=== PATIENT | female | born 1970 | race Caucasian/White ===

== ENCOUNTER 2020-05-11 09:27 | Emergency (ER) | payer MEDICAID, SELFPAY ==
[2020-05-11 09:35] VITALS: BP 133/113; PULSE 75; RESP 18; TEMP 36.7; O2SAT 100
--- NOTE | 2020-05-11 09:38 | ED.UPPEXIN ---
HPI - Extremity Injury (Upper) General Chief Complaint: Extremity Injury, Upper Stated Complaint: left hand injury Time Seen by Provider: 05/11/20 09:33 Source: patient History of Present Illness HPI narrative: Patient complaining of elbow pain after she was placed in handcuffs by the police and resisted, possibly dislocating her left elbow. Patient states she has had left elbow dislocation in the past Other injuries: none Severity scale (1-10): 10 Relieving factors: none Exacerbating factors: movement of extremity Associated symptoms: denies other symptoms Related Data Allergies Allergy/AdvReac Type Severity Reaction Status Date / Time ketorolac Allergy Mild Verified 02/05/19 14:29 naproxen Allergy Mild Verified 02/05/19 14:29 adhesive Allergy Unknown Verified 02/05/19 14:29 codeine Allergy Unknown Verified 02/05/19 14:29 dicyclomine Allergy Unknown Unknown Verified 02/05/19 14:29 meperidine Allergy Unknown Unknown Verified 02/05/19 14:29 Sulfa (Sulfonamide Allergy Unknown RASH Verified 02/05/19 14:29 Antibiotics) DICYCLOMINE HCL Allergy Severe SEIZURE Uncoded 02/05/19 14:29 MEPERIDINE HCL Allergy Unknown Uncoded 02/05/19 14:29 NALBUPHINE HCL Allergy Unknown Uncoded 02/05/19 14:29 Review of Systems Review of Systems: All systems reviewed & are unremarkable except as noted in HPI and below Constitutional: Constitutional: Reports as per HPI Cardiovascular: Cardiovascular: Reports no additional cardiovascular complaints, Denies chest pain and Denies radiating jaw, neck or arm pain Respiratory: Respiratory: Reports no additional respiratory complaints and Denies dyspnea Gastrointestinal: Gastrointestinal: Denies abdominal pain, Denies nausea and Denies vomiting Musculoskeletal: Musculoskeletal: Reports no additional musculoskeletal complaints and Denies back pain Neurologic: Denies numbness and Denies weakness Exam Const: General: cooperative, healthy appearing, comfortable, no acute distress, well developed, alert and awake; No confusion Orientation/consciousness: oriented to person, oriented to place, oriented to time, patient oriented x3 and No confusion Limitations: no limitations HENMT: Head: normal to inspection, normocephalic and atraumatic Ears: hearing grossly normal bilaterally, TM normal on the right and TM normal on the left General nose exam: Normal external nose present, Normal nares present and No nasal discharge present Face and sinus: normal facial exam Mouth: Yes Normal oral and palatal mucosa present, Yes lip normal, Yes tongue normal and Yes oropharynx normal Throat: posterior oropharynx normal, tonsils normal and uvula midline Eyes: General: appearance normal, both eyes and all related structures Pupils: Equal, round and reactive pupils present EOM: EOMs intact bilaterally Neck: Neck: normal visual inspection, full ROM, no lymphadenopathy and no meningeal signs Chest: Chest palpation & inspection: normal inspection of the chest Resp: Effort & Inspection: normal respiratory effort, able to speak in complete sentences, no respiratory distress and not tachypneic Auscultation: clear to auscultation bilaterally, no crackles, no rales, no rhonchi and no wheezes Cardio: Rate: regular rate Rhythm: regular rhythm GI: Inspection: normal to inspection GI Palp: No abdominal tenderness, Yes Soft to palpation, No Tenderness to palpation present (GI), No Guarding due to palpation present (GI), No Rigid due to palpation and No Rebound tenderness present Auscultation: normal bowel sounds : General: Yes no CVA tenderness Back/Spine/Pelvis: Back: no CVA tenderness Skin: General skin exam: normal color, no rashes or lesions noted, elasticity normal and turgor normal Neuro: General: oriented to person, oriented to place, oriented to time, patient oriented x3, tone normal, moves all extremities, Normal light touch and pain sensation, no meningeal signs, no focal motor deficits, CN's II-XI intact bilat
== END 2020-05-11 10:03 | disposition left against medical advice (07) ==
LOC: ANHED 09:58
PROVIDERS: Emergency Provider Emergency Medicine
DX: M25.522 Pain in left elbow (principal)
CPT/HCPCS: 99282

== ENCOUNTER 2020-09-01 18:04 | Emergency (ER) | payer BC, SELFPAY ==
[2020-09-01 18:03] VITALS: BP 128/96; PULSE 103; RESP 18; TEMP 36.6; O2SAT 96
--- NOTE | 2020-09-01 18:40 | ED.OVERDOSE ---
HPI - Overdose General Chief Complaint: Overdose Stated Complaint: OD Time Seen by Provider: 09/01/20 18:22 Source: patient Mode of arrival: ambulatory Limitations: no limitations History of Present Illness HPI Narrative: A 49-year-old female came into the emergency department via EMS after an alleged overdose. Patient does note that she has a history of snorting heroin. She states tonight she thinks her heroin may have contained fentanyl as well. She does state that she has been clean for the last few months and tonight was a relapse. Patient is very tearful. She is she is keeps stating she wants to go home. Related Data Allergies Allergy/AdvReac Type Severity Reaction Status Date / Time ketorolac Allergy Mild Rash Verified 09/01/20 18:10 naproxen Allergy Mild Unknown Verified 09/01/20 18:10 adhesive Allergy Unknown Rash Verified 09/01/20 18:10 codeine Allergy Unknown Unknown Verified 09/01/20 18:10 dicyclomine Allergy Unknown Unknown Verified 02/05/19 14:29 meperidine Allergy Unknown Unknown Verified 02/05/19 14:29 Sulfa (Sulfonamide Allergy Unknown RASH Verified 02/05/19 14:29 Antibiotics) DICYCLOMINE HCL Allergy Severe SEIZURE Uncoded 02/05/19 14:29 MEPERIDINE HCL Allergy Unknown Unknown Uncoded 09/01/20 18:10 NALBUPHINE HCL Allergy Unknown Unknown Uncoded 09/01/20 18:10 Review of Systems Review of Systems: Narrative: CONSTITUTIONAL: Denies fever, chills, or sweats. EYES: Denies visual changes, redness, or discharge. ENT: Denies rhinorrhea, congestion, sore throat, or otalgia. CARDIOVASCULAR: Denies chest pain, palpitations, or edema. RESPIRATORY: Denies cough or dyspnea. GASTROINTESTINAL: Denies abdominal pain, nausea, vomiting, or diarrhea. GENITOURINARY: Denies dysuria or hematuria. SKIN: Denies rash or itching. MUSCULOSKELETAL: Denies back pain, joint pain, or myalgia. NEUROLOGIC: Denies headache, numbness, dizziness, or weakness. PSYCHIATRIC: Denies anxiety or depression. [facility] Social History Social History Smoking status: Current some day smoker Alcohol intake: current Substance use: current Substance use type: heroin and opiates Exam Narrative: Exam Narrative: GENERAL: Well-appearing, well-nourished, and in no acute distress. HEAD: Normocephalic, atraumatic. EYES: PERRLA and EOMI. ENT: Nares clear, no rhinorrhea or epistaxis. Mucous membranes moist. Oropharynx without tonsillar hypertrophy exudate or other lesions. Bilateral TMs pearly bowen nonbulging NECK: Supple. No adenopathy or masses. No carotid bruits or JVD CHEST: Clear to auscultation. No respiratory distress. No wheezes rales or rhonchi HEART: Regular rate and rhythm. No murmur heard. Normal peripheral pulses. ABDOMEN: Soft, nontender, nondistended, normal active bowel sounds. EXTREMITIES: Normal range of motion. No edema. SKIN: Warm, dry, no rash. NEURO: No focal deficits. Alert and oriented x3. PSYCH: Normal mood and affect. Course Course Emergency Course: After initial evaluation the patient was very tearful and kept asking what happens if she would go to sleep. I have tried to explain to her numerous times that she may go to sleep if she is here in the emergency department on a monitor. I explained to her that if she goes home and falls asleep that she could . This was explained to the patient several times. She stated that she is trying to decide if she wants to stay or wants to leave. Reevaluation(s) Reevaluation #1: After initial evaluation the patient was very tearful and kept asking what happens if she would go to sleep. I have tried to explain to her numerous times that she may go to sleep if she is here in the emergency department on a monitor. I explained to her that if she goes home and falls asleep that she could . This was explained to the patient several times. She stated that she is trying to decide if she wants to stay or wants to leave. Time: 18:42 Reevaluat
--- NOTE | 2020-09-01 18:43 | PC.NURSE ---
Took off monitor and put clothing back on. States she wants to leave AMA but is afraid if she falls asleep she won't wake back up. Pt advised to stay to be evaluated. Boyfriend to room to speak with pt.
== END 2020-09-01 18:57 | disposition left against medical advice (07) ==
LOC: ANHED 18:48
PROVIDERS: Emergency Provider Emergency Medicine
DX: T40.1X1A Poisoning by heroin, accidental (unintentional), initial encounter (principal); F17.200 Nicotine dependence, unspecified, uncomplicated
CPT/HCPCS: 99281

== ENCOUNTER 2020-10-13 06:30 | Emergency (ER) | payer BC, SELFPAY ==
[2020-10-13] VITALS (11 sets, daily range): BP systolic 106–135; BP diastolic 79–103; PULSE 75–109; RESP 13–20; TEMP 36.6; O2SAT 98–100
--- NOTE | ~2020-10-13 | XR_ITS ---
XR chest 1V portable DATE: 10/13/2020 07:06 INDICATION: Overdose TECHNIQUE: Portable supine AP view on October 13, 2020 at 0708 hours COMPARISON: 02/02/2019 AP chest FINDINGS: Normal heart size. Calcified hilar and mediastinal nodes consistent with old granulomatous disease. No pulmonary infiltrate or consolidation, pleural effusion or pulmonary vascular congestion or pneumothorax. Diffuse osteopenia. Suture anchors of right humeral head. Right rotator cuff atrophy. Left glenohumer al area is excluded from the radiograph. IMPRESSION: No active cardiopulmonary disease Reviewed, dictated and finalized at location A. AZZO HELPER
--- NOTE | 2020-10-13 07:06 | PC.NURSE ---
Report received from ANTHONY Coates, to continue care. Pt asleep on stretcher. PCXR being done.
--- NOTE | 2020-10-13 07:06 | ED.OVERDOSE ---
HPI - Overdose General Chief Complaint: Overdose Stated Complaint: OD Time Seen by Provider: 10/13/20 07:04 History of Present Illness HPI Narrative: 49 yo female w/ h/o opioid abuse presents to the ED for an overdose. She was found unresponsive. She was given 6 mg IN narcan. On arrival to the ED she was awake and uncooperative. Maintaining O2 saturation without supplemental oxygen. Related Data Allergies Allergy/AdvReac Type Severity Reaction Status Date / Time ketorolac Allergy Mild Rash Verified 09/01/20 18:10 naproxen Allergy Mild Unknown Verified 09/01/20 18:10 adhesive Allergy Unknown Rash Verified 09/01/20 18:10 codeine Allergy Unknown Unknown Verified 09/01/20 18:10 Sulfa (Sulfonamide Allergy Unknown RASH Verified 02/05/19 14:29 Antibiotics) DICYCLOMINE HCL Allergy Severe SEIZURE Uncoded 02/05/19 14:29 MEPERIDINE HCL Allergy Unknown Unknown Uncoded 09/01/20 18:10 NALBUPHINE HCL Allergy Unknown Unknown Uncoded 09/01/20 18:10 Review of Systems Review of Systems: All systems reviewed & are unremarkable except as noted in HPI and below Constitutional: Constitutional: Denies fever(s) Cardiovascular: Cardiovascular: Denies chest pain Respiratory: Respiratory: Denies dyspnea Psychiatric: Psychiatric: Denies homicidal ideation and Denies suicidal ideation [facility] Social History Social History Smoking status: Current some day smoker Alcohol intake: current Substance use: current Substance use type: heroin and opiates Exam Const: General: no acute distress and alert Orientation/consciousness: patient oriented x3 HENMT: Head: normal to inspection Eyes: Pupils: Equal, round and reactive pupils present Neck: Neck: normal visual inspection Resp: Effort & Inspection: normal respiratory effort Auscultation: clear to auscultation bilaterally Cardio: Rate: regular rate Rhythm: regular rhythm GI: GI Palp: Yes Soft to palpation and No Tenderness to palpation present (GI) Neuro: General: patient oriented x3, moves all extremities, no focal motor deficits and CN's II-XI intact bilaterally Speech: normal speech Gait exam (Neuro): Normal gait present Extrem: General: normal to inspection Course Vital Signs Vital signs: Vital Signs Temperature 36.6 C 10/13/20 06:23 Pulse Rate 104 H 10/13/20 06:23 Respiratory Rate 18 10/13/20 06:23 Blood Pressure 125/88 10/13/20 06:23 Pulse Oximetry 98 10/13/20 06:23 Temperature 36.6 C 10/13/20 06:23 Pulse Rate 80 10/13/20 09:01 Respiratory Rate 13 10/13/20 09:01 Blood Pressure 135/97 H 10/13/20 09:01 Pulse Oximetry 100 10/13/20 09:01 MDM - Overdose MDM Narrative Medical decision making narrative: unintentional overdose. Breathing well. Discharge Plan Discharge Clinical Impression: Accidental fentanyl overdose Qualifiers: Encounter type: initial encounter Qualified Code(s): T40.411A - Poisoning by fentanyl or fentanyl analogs, accidental (unintentional), initial encounter Patient Disposition: Home, Self-Care Condition: Stable Instructions: Antibiotic Form, Opioid Use Disorder (ED) Follow-up/Referrals: Melina Pulliam DO [Physician] - PHYSICIAN,WEED CONTROLLER [Primary Care Provider] -
--- NOTE | 2020-10-13 07:49 | PC.NURSE ---
Pt resting on stretcher, arouses to noxious stimuli.
--- NOTE | 2020-10-13 09:31 | PC.NURSE ---
Pt arouses to name and gentle touch. Denies needs at present.
--- NOTE | 2020-10-13 10:11 | PC.NURSE ---
road tested pt. to bathroom. Walked to and from fine. 1011
== END 2020-10-13 10:31 | disposition home or self-care (01) ==
PROVIDERS: Emergency Provider Emergency Medicine
DX: T40.411A Poisoning by fentanyl or fentanyl analogs, accidental (unintentional), initial encounter (principal); F17.200 Nicotine dependence, unspecified, uncomplicated
CPT/HCPCS: 71045; 99283

== ENCOUNTER 2025-02-28 15:24 | Emergency (ER) | payer BC, SELFPAY ==
--- NOTE | ~2025-02-28 | XR_ITS ---
XR hip LT min 3V w AP pelvis Ordering provider: Killian Melton APRN History: . pain . Comparison: March 08, 2013 FINDINGS: BONES: No acute fracture. Superior dislocation is seen in the left hip with pseudoacetabulum . AVN is seen in the left femoral head. HIP JOINT SPACES: Normal. SACROILIAC JOINT SPACES/LUMBAR SPINE: The sacroiliac joint spaces are normal. Normal visualized lower lumbar spine. PUBIC SYMPHYSIS: Normal. SOFT TISSUES: Normal. IMPRESSION: Superior dislocation of the left femoral head. AVN in the left femoral head. Reviewed, dictated and finalized at location A.
--- NOTE | ~2025-02-28 | XR_ITS ---
3 VIEWS LUMBAR SPINE Ordering provider: Killian Melton APRN History: . pain . Comparison: February 17, 2015 FINDINGS: VERTEBRAL BODIES: No visible fracture or subluxation. Levoscoliosis. DISK SPACES: Narrowing of the disc L5-S1. SOFT TISSUES: Atherosclerotic changes of the aorta. IMPRESSION: No acute osseous abnormality lumbar spine. Degenerative disc disease at the level of L5-S1. Reviewed, dictated and finalized at location A.
[2025-02-28 15:39] VITALS: BP 141/96; PULSE 116; RESP 20; TEMP 36.9; O2SAT 98
--- NOTE | 2025-02-28 15:59 | ED_ITS ---
HPI - General Adult General Chief complaint: Extremity Problem,Nontraumatic Stated complaint: Left Leg Pain Source: patient Mode of arrival: wheelchair Limitations: no limitations History of Present Illness HPI narrative: Pt is a 54 y/o female presenting with c/o L. lower back pain that radiates into the L. hip and down the L. leg. Pain began a few months ago, became worse a few weeks ago. Tx initiated CABBAGE SALTER includes aleve, tylenol. NO paresthesias to extremities. No bowel/bladder incontinence. No urinary retention. States she is unable to ambulate due to pain. Has not been evaluated since pain began. No additional complaints. Related Data Allergies Allergy/AdvReac Type Severity Reaction Status Date / Time ketorolac Allergy Mild Rash Verified 02/28/25 15:44 naproxen Allergy Mild Unknown Verified 02/28/25 15:44 adhesive Allergy Unknown Rash Verified 02/28/25 15:44 codeine Allergy Unknown Unknown Verified 02/28/25 15:44 Sulfa (Sulfonamide Allergy Unknown RASH Verified 02/28/25 15:44 Antibiotics) DICYCLOMINE HCL Allergy Severe SEIZURE Uncoded 02/28/25 15:44 MEPERIDINE HCL Allergy Unknown Unknown Uncoded 02/28/25 15:44 NALBUPHINE HCL Allergy Unknown Unknown Uncoded 02/28/25 15:44 Review of Systems Review of Systems: All systems reviewed & are unremarkable except as noted in HPI and below PMFSH Social History Social History Smoking status: Current some day smoker Alcohol intake: current Substance use: current Substance use type: heroin and opiates Exam Narrative: GENERAL: Well-appearing, well-nourished, and in no acute distress. HEAD: Normocephalic, atraumatic. EYES: EOMI. No redness or drainage. Conjunctivae normal. ENT: Mucous membranes pink and moist. NECK: Normal AROM. Supple. CHEST: No respiratory distress. Clear to auscultation. HEART: Regular rate and rhythm. No murmur appreciated. Normal peripheral pulses. MUSCULOSKELETAL: TTP to the lumbar spine, L. paraspinal tenderness, obvious deformity to hip with L. leg shortening. EXTREMITIES: DROM to the LLE. No edema. SKIN: Warm, dry, no rash. Capillary refill normal. Normal skin turgor. NEURO: No focal deficits. Alert and oriented x3 PSYCH: Normal affect. No signs of depression or anxiety. Course Course Emergency Course: Pt states she has not used heroin or opioids in over 4 years. However, upon further questioning, pt reports she fell approximately 1 year ago, injuring her L. hip--went to an in [place], had xrays and everything was 'normal'. States she was given a Rx for vicodin which she did not fill until a few months ago when she developed back pain. She has been using a walker and wheelchair for the last several months. 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 I offered to transfer patient to [place] or [facility] ER for pain control/ortho consult however, she declined saying that she wants to go home, does not want to take anything stronger than Tylenol or Aleve. Level of Care: Express Care Visit Vital Signs Vital signs: Vital Signs Temperature 98.5 F 02/28/25 15:39 Pulse Rate 116 H 02/28/25 15:39 Respiratory Rate 02/28/25 15:39 Blood Pressure 141/96 H 02/28/25 15:39 Pulse Oximetry 98 02/28/25 15:39 Oxygen Delivery Room Air 02/28/25 15:39 Temperature 98.5 F 02/28/25 15:39 Pulse Rate 116 H 02/28/25 15:39 Respiratory Rate 02/28/25 15:39 Blood Pressure 141/96 H 02/28/25 15:39 Pulse Oximetry 98 02/28/25 15:39 Oxygen Delivery Room Air 02/28/25 15:39 Medical Decision Making Vital Signs Vital Signs: Vital Signs Temperature 98.5 F 02/28/25 15:39 Pulse Rate 116 H 02/28/25 15:39 Respiratory Rate 02/28/25 15:39 Blood Pressure 141/96 H 02/28/25 15:39 Pulse Oximetry 98 02/28/25 15:39 Oxygen Delivery Room Air 02/28/25 15:39 Temperature 98.5 F 02/28/25 15:39 Pulse Rate 116 H 02/28/25 15:39 Respiratory Rate 02/28/25 15:39 Blood Pressure 141/96 H 02/28/25 15:39 Pulse Oximetry 98 02/28/25 15:39 Oxygen Delivery Room Air 02/28/25 15:39 Discharge Plan Discharge Clinical Impression: Dislocation of left hip, Low back pain, Chronic left hip pain, DDD (degenerative disc disease), lumbosacral, Opioid dependence with current use Patient Disposition: Home Condition: Stable Instructions: Antibiotic Form, Hip Dislocation (ED) Additional Instructions: Call [facility] ortho clinic first thing in morning Go straight to ER should your symptoms become worse or should any new symptoms develop Patient Language: Tuvaluan Follow-up/Referrals: PHYSICIAN,CIVIL CAD DESIGNER [Primary Care Provider] - 02/28/25 Time of Disposition: 17:05
[2025-02-28] MEDS: dexAMETHasone SOD PHOS INJ 10 MG/ML 1 ML VIAL IM (16:20)
== END 2025-02-28 17:19 | disposition home or self-care (01) ==
PROVIDERS: Emergency Provider Registered Nurse
DX: S73.005A Unspecified dislocation of left hip, initial encounter (principal); X58.XXXA Exposure to other specified factors, initial encounter; M54.50 Low back pain, unspecified; G89.29 Other chronic pain; M25.552 Pain in left hip; M51.379 Other intervertebral disc degeneration, lumbosacral region without mention of lumbar back pain or lower extremity pain; F11.20 Opioid dependence, uncomplicated; F17.200 Nicotine dependence, unspecified, uncomplicated
CPT/HCPCS: 72100; 73502; 96372; 99214; G0463; J1100

== ENCOUNTER 2025-03-20 11:14 | Emergency (ER) | payer BC, SELFPAY ==
--- NOTE | ~2025-03-20 | XR_ITS ---
XR hip LT 2V w AP pelvis 03/20/2025 12:33 Indication: Status post fall. Limited range of motion. Procedure: 3 views left hip Comparison: Comparison to multiple prior studies sequentially, with oldest reviewed study dated 06/17. 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 There is superior subluxation of the femoral head. This is unchanged compared with 02/28/2025. No acute fracture or traumatic malalignment. Impression: 1: Stable superior lateral subluxation of the left femoral head compared with 02/28/2025. 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 Reviewed, dictated and finalized at location A. Impression: 1: Stable superior lateral subluxation of the left femoral head compared with . This is likely a complication of AVN of the femoral head with remodel ing of the joint.
[2025-03-20 11:15] VITALS: BP 136/90; PULSE 118; RESP 16; TEMP 36.3; O2SAT 99
--- NOTE | 2025-03-20 11:47 | ECG_ITS ---
Test Date: 2025-03-20 12:05:20 Measurements Intervals [place] Rate: 91 P: 84 CA: 141 QRS: 53 QRSD: 79 T: 67 QT: 355 QTc: 437 Interpretive Statements SINUS RHYTHM POSSIBLE LEFT ATRIAL ENLARGEMENT CANNOT R/O SEPTAL INFARCT, AGE INDETERMINATE BASELINE ARTIFACT- I, II, III, AVR, AVL, AVF ABNORMAL ECG No previous ECG available for comparison Electronically Signed On 03-20-2025 12:27:21 CDT by Sy Martinez D.O.
--- OUTSIDE RECORDS SUMMARY | 2025-03-20 12:01 | XMS_ITS | Patient Health Record ---
Author Organization [facility] Address [address] [place] [address] Care Team Providers Care C++ Quant Developer Name Role Phone Andrew Thakkar Primary Care Provider Allergies Allergen (clinical drug ingredient) Drug/Non Drug Allergy documented on EMR Reaction Allergy Type Onset Date Status torjanice melgar bentyl. (uncoded) Unknown Allergy Active Reason For Referral No Information Medications Medication SIG (Take, Route, Fr equency, Duration) Notes Start Date End Date Status Trileptal 150 MG as directed Orally 08/16/189908/1899 Active Xanax 0.5 MG 1 tablet Orally Three times a day 08/189908/16/1899 Active PROzac 20 MG 1 capsule in the mor rogers Orally Once a day; Duration: 30 day(s) Active Benadryl 25 MG 1 capsule Orally every 6 hrs 189908/16/1899 Active SEROquel 100 MG 1 tablet at bedtime Orally Once a day; Duration: 30 day(s) Active Reglan 5 MG 1 tablet 30 minutes before meals and at bedtime Orally every 6 hrs Active Problems Problem Type SNOMED Code ICD Code Onset Dates Problem Status W/U Status Risk Notes Problem Bipolar disorder (78093849) Bipolar disorder NOS (296.7) Active confirmed Problem Chronic pain syndrome (507188217) Chronic pain syndrome (338.4) Active confirmed Plan Of Treatment No Information Insurance Providers Payer Name Payer Address Payer Phone Subscriber Number Group Number Insured Name Patient Relationship to Insured Coverage Start Date Coverage End Date [place] [phone] [id number] Jovita Staley Self - patient is the insured Medical (General) History Medical History History ICD Code ovarian cancer, colon resection, cck, ap pendectomy. bipolar
--- OUTSIDE RECORDS SUMMARY | 2025-03-20 12:01 | XMS_ITS | Clinical Summary ---
Author Organization [facility] Address [address] [place] [address] Phone Care Team Providers Care Descriptive Catalog Librarian Name Role Phone Lamont Diaz MD Primary Care Provider Allergies Active Allergy Reactions Criticality Noted Date Comments Dicyclomine Other (see Comments) 12/22/2016 Reaction seizures Meperidine Hives 12/22/2016 Fentanyl Vomiting 12/22/2016 Morphine Hives 05/02/2017 Nalbuphine Other (see Comments) 12/22/2016 Causes seizures Sulfa Antibiotics Vomiting 12/22/2016 Adhesive Tape Rash 12/22/2016 Ketorolac Tromethamine Hives 12/22/2016 Medications levETIRAcetam (KEPPRA) 500 MG Tablet Take 500 mg by mouth 2 times daily. Active calcium carbonate (TUMS) 500 MG Chewable Tablet Take 1 Tab by mouth daily. Active DULoxetine (CYMBALTA) [address] Particles Take 90 mg by mouth daily. Active raNITIdine (ZANTAC) 150 MG Tablet Take 150 mg by mouth 2 times daily. Active ondansetron (ZOFRAN) 4 MG Tablet Take 4 mg by mouth every 8 hours as needed for Nausea. Active albuterol (PROAIR HFA) 108 (90 Base) MCG/ACT Aerosol Solution take 2 Puffs by inhalation every 6 hours as needed for Wheezing. Active diphenhydrAMINE (BENADRYL) 25 MG Tablet Take 50 mg by mouth every 4 hours as needed. Active thiamine (VITMAIN B-1) 50 MG Tablet Take 100 mg by mouth daily. Active methadone (DOLOPHINE) 10 MG Tablet Take 40 mg by mouth 4 times daily. Active TPN ADULT by Intravenous route continuous. Active clonazePAM (KLONOPIN) 1 MG Tablet Take 1 mg by mouth 3 times daily. Active warfarin (COUMADIN) 2 MG Tablet Take 2 mg by mouth daily. Active zolpidem (AMBIEN) 10 MG Tablet Take 10 mg by mouth nightly as needed. Active Active Problems Problem Noted Date Diagnosed Date History of cervical cancer 05/02/2017 History of uterine cancer 05/02/2017 Colon cancer 05/02/2017 Abdominal pain, chronic, generalized 05/02/2017 Complication of central venous catheter, initial encounter 05/02/2017 Bipolar disorder 05/02/2017 Pancytopenia 05/02/2017 Colostomy present 05/02/2017 History of partial colectomy 05/02/2017 Family History Medical History Relation Name Comments Colon Cancer Mother Relation Name Status Comments Mother Social History Tobacco Use Types Packs/Day Years Used Date Smoking Tobacco: Never Alcohol Use Standard Drinks/Week Comments No 0 (1 standard drink = 0.6 oz pur e alcohol) Comments No Sex and Gender Information Value Date Recorded Sex Assigned at Not on file Legal Sex Female 3:35 AM [employer] Gender Identity Not on file Sexual Orientation Not on file Last Filed Vital Signs Vital Sign Reading Time Taken Comments Blood Pressure 101/61 05/02/2017 7:57 AM CDT Pulse 99 05/02/2017 7:38 AM CDT Temperature 37.7 C (99.9 F) 05/02/2017 7:57 AM CDT Respiratory Rate 16 05/02/2017 7:57 AM CDT Oxygen Saturation 93% 05/02/2017 7:57 AM CDT Inhaled Oxygen Concentration - - Weight 59 kg (130 lb) 05/01/2017 9:04 PM CDT Height 165.1 cm (5' 5) 05/01/2017 9:04 PM CDT Body Mass Index 21.63 05/01/2017 9:04 PM CDT Plan of Treatment Health Maintenance Due Date Last Done Comments Hepatitis C Virus (HCV) Screening 1970 TdaP Immunization 1970 SARS-COV-2 Immunization (#1) 10/26/1975 Hepatitis B Immunization (1 of 3 - 19+ 3-dose series) 1989 Pneumococcal Immunization (5 0+ years) (1 of 2 - PCV) 1989 Zoster Immunization (1 of 2) 1989 Cologuard 10/26/2015 Colonoscopy 10/26/2015 Colorectal Cancer Screening 10/26/2015 Immunochemical Fecal Occult Blood 10/26/2015 Influenza Immunization (#1) 2025 Respiratory Syncytial Virus (RSV) Immunization (Adult) (1 - 1-dose 75+ series) 2045 Human Papillomavirus (HPV) Immunization Aged Out No longer eligible b ased on patient's age to complete this topic Meningococcal Immunization (ACWY) Aged Out No longer eligible based on patient's age to complete this topic Rotavirus Immunization Aged Out No lo nger eligible based on patient's age to complete this topic Insurance MED[employer]ID [employer] Advance Directives Documents on File 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 PRE-ARREST: DO NOT USE INTUBATION OR MECHANICAL VENTILATION, but may use basic medical treatment like CPAP or BiPAP, antibiotics, IV fluids, oxygen, etc. Avoid care in ICU setting. Question Answer Comments Physician documentation made in notes? Yes Care Teams Descriptive Catalog Librarian Relationship Specialty Start Date End Date Lamont Diaz MD [address] [place] [phone] PCP - General Family Medicine 04/07/17
--- OUTSIDE RECORDS SUMMARY | 2025-03-20 12:02 | XMS_ITS | Encounter Summary ---
Author Organization [facility] Address [address] [place] [address] Care Team Providers Care Exhaust Tender Name Role Phone [facility], External Provider Primary Care Provider [facility] Encounter Details Date Type Department Care Team (Late st Contact Info) Description 12/18/2007 Outpatient Historical [facility] [place], Authorized P NO ADDRESS ON FILE Kolton Frost MD [address] [place], [place] [id number] Ramiro Lanier MD 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 Gender Identity Not on file Sexual Orientation Not on file documented as of this encounter Plan of Treatment Not on file documented as of this encounter Procedures Procedure Name Priority Date/Time Associated Diagnosis Comments CBC WITH DIFFERENTIAL Routine 12/22/2007 4:50 AM CDT COMPREHENSIVE METABOLIC PANEL Routine 12/22/2007 4:50 AM CDT XR ABDOMEN 1 VW Routine 12/21/2007 6:39 PM CDT XR KNEE 4+ VW RIGHT Routine 12/21/2007 6 :39 PM CDT CBC WITH DIFFERENTIAL Routine 12/21/2007 12:45 AM CDT COMPREHENSIVE METABOLIC PANEL Routine 12/21/2007 12:45 AM CDT XR BARIUM ENEMA Routine 12/20/2007 9:15 AM CDT LACTIC ACID Routine 12/20/2007 6:50 AM CDT C-REACTIVE PROTEIN Routine 12/20/2007 6: 50 AM CDT TSH Routine 12/20/2007 6:50 AM CDT T4 FREE Routine 12/20/2007 6:50 AM CDT LIPASE Routine 12/20/2007 6:50 AM CDT LACTATE DEHYDROGENASE Routine 12/20/2007 6:50 AM CDT AMYLASE Routine 12/20/2007 6:50 AM CDT XR CONSULTATION Routine 12/19/2007 11:41 AM CDT XR FLUORO LOCAL NEEDLE BX ASP Routine 12/19/2007 11:40 AM CDT CBC WITH DIFFERENTIAL Routine 12/19/2007 8:31 AM CDT MAGNESIUM LEVEL Routine 12/19/2007 8:[address] ABDOMEN PELVIS WO CONTRAST Routine 12/18/2007 10:09 PM CDT CBC WITH DIFFERENTIAL Stat 12/18/2007 10:02 PM CDT COMPREHENSIVE METABOLIC PANEL Stat 12/18/2007 9:24 PM CDT documented in this encounter Results * (ABNORMAL) CBC WITH DIFFERENTIAL (12/22/2007 4:50 AM CDT) RBC 3.44(L) 3.90 - 4.90 M/uL [facility] MCHC 32.2 31.5 - 35.5 % [facility] MCV 88.4 82.0 - 99.0 fL [facility] PLATELETS 337 140 - 350 K/uL [facility] HEMOGLOBIN 9.8(L) 11.8 - 14.8 g/dL [facility] RDW 13.3 11.5 - 14.5 % [facility] WBC 5.9 4.0 - 9.8 K/uL [facility] MCH 28.5 27.2 - 32.6 pg [facility] MPV 9.5 9.3 - 12.4 fL [facility] HEMATOCRIT 30.4(L) 35.5 - 44.0 % [facility] RDW-STDEV 42.8 37.1 - 48.7 fL [facility] MONOCYTE ABSOLUTE 0.63 0.10 - 1.30 K/uL [facility] NEUTROPHILS 55 45 - 70 % [facility] NEUTROPHIL ABSOLUTE 3.23 1.90 - 7.00 K/uL [facility] EOSINOPHILS 2 0 - 7 % [facility] EOSINOPHIL ABSOLUTE 0.13 0.00 - 0.70 K/uL [facility] LYMPHOCYTES 32 16 - 45 % [facility] LYMPHOCYTE ABSOLUTE 1.90 0.70 - 4.50 K/uL [facility] BASOPHILS 0 0 - 2 % [facility] BASOPHILS ABSOLUTE 0.02 0.00 - 0.20 K/uL [facility] MONOCYTES 11 3 - 13 % [facility] Blood specimen (specimen) 12/22/2007 4:50 AM CDT 12/22/2007 5:12 AM CDT us Ramiro Lanier MD HEMATOLOGY ORDERABLES Edited INTERFACE SYSTEM Refer to clinic/hospital department [facility] [address] [place] [address] * (ABNORMAL) COMPREHENSIVE METABOLIC PANEL (12/22/2007 4:50 AM CDT) CREATININE 0.84 0.51 - 0.95 mg/dL [facility] ALT 35(H) 0 - 31 U/L [facility] SODIUM 133(L) 135 - 145 mmol/L [facility] ALKALINE PHOSPHATASE 118(H) 35 - 104 U/L [facility] CO2 28 22 - 30 mmol/L [facility] BILIRUBIN TOTAL 0.1(L) 0.2 - 1.0 mg/dL [facility] POTASSIUM 4.2 3.5 - 4.9 mmol/L [facility] TOTAL PROTEIN 6.3 6.3 - 8.6 g/dL [facility] GLUCOSE 102(H) 65 - 99 mg/dL [facility] AST 31 12 - 32 U/L [facility] BUN 9 6 - 20 mg/dL [facility] CALCIUM 8.2(L) 8.4 - 10.2 mg/dL [facility] ALBUMIN 3.3(L) 3.4 - 4.8 g/dL [facility] CHLORIDE 96 96 - 108 mmol/L [facility] GFR, >60 >=60 mL/min/1. 7 sq meter [facility] GFR >60 >=60 mL/min/1. 7 sq meter [facility] Comment: Estimated GFR rate interpretative information for both Americans and non- Americans is available on the [facility] Intranet at: [email or web address] Select: Lab Policies and Procedures Select: Reference Ranges - GFR Blood specimen (specimen) 12/22/2007 4:50 AM CDT 12/22/2007 5:12 AM CDT us Ramiro Lanier MD CHEMISTRY ORDERABLES Edited [facility] [address] [place] [address] * XR KNEE 4+ VW RIGHT (12/21/2007 6:39 PM CDT) Anatomical Region Laterality Modality Lower Extremity Other 12/21/2007 6:39 PM CDT Narrative 12/21/2007 7:44 PM CDT [facility] [address] [place], [place] [address] Admit Date: 12/19/2007 JOVITA STALEY Sex: F Admit Prov: JOHANNACHAKAKOLTON SANTANA Date: 1970 Primary Care Prov: PCP , NONE CMRN: [id number] Room: [place] [address] 3 SSN: [id number] IMAGING SERVICES Ordering Prov: N/A Accession Number: [id number] Interpretation RIGHT KNEE 4 VIEWS 12/21/2007 History: Right knee pain. Technique: Four views of the right knee were obtained. No prior studies are available for comparison. Findings: No acute fracture or dislocation is identified. No joint effusion is seen. The joint spaces are well maintained. . Dictated by: CAREY CORRAL 12/21/2007 19:01 Electronically signed by: CAREY CORRAL 12/21/2007 19:44 Transcribed: 12/21/2007 19:06 SJ Procedure Note Carey Corral - 12/21/2007 [facility] [address] [place], [place] [address] Admit Date: 12/19/2007 JOVITA STALEY Sex: F Admit Prov: KOLTON FROST Date: 1970 Primary Care Prov: PCP , NONE CMRN: [id number] Room: [place] [address] 3 SSN: [id number] IMAGING SERVICES Ordering Prov: N/A Interpretation RIGHT KNEE 4 VIEWS 12/21/2007 History: Right knee pain. Technique: Four views of the right knee were obtained. No priorstudies are available for comparison. Findings: No acute fracture or dislocation is identified. No jointeffusion is seen. The joint spaces are well maintained. . Dictated by: CAREY CORRAL 12/21/2007 19:01 Electronically signed by: CAREY CORRAL 12/21/2007 19:44 Transcribed: 12/21/2007 19:06 SJ us Ramiro Lanier MD DIAGNOSTIC IMAGING ORDERABLES F inal Result * XR ABDOMEN 1 VW (12/21/2007 6:39 PM CDT) Anatomical Region Laterality Modality Abdomen Other 12/21/2007 6:39 PM CDT Narrative 12/21/2007 7:44 PM CDT [facility] [address], [place] [address] Admit Date: 12/19/2007 ORESTES STALEYCHRISTOPHER Aguero Sex: F Admit Prov: KOLTON FROST Date: 1970 Primary Care Prov: PCP , NONE CMRN: [id number] Room: [place] [address] SSN: [id number] IMAGING SERVICES Ordering Prov: N/A Accession Number: [id number] Interpretation KUB 12/21/2007 History: Abdominal pain. Technique: Single AP view of the abdomen and pelvis was obtained and compared with a previous study dated 12/20/2007. Findings: The bowel gas pattern is nonobstructed. Surgical clips are identified within the left hemipelvis. Phleboliths are identified within the pelvis. Probable splenic granulomas are identified in the left upper quadrant. Impression: Nonobstructive bowel gas pattern. No metallic foreign body identified. . Dictated by: CAREY CORRAL 12/21/2007 19:32 Electronically signed by: CAREY CORRAL 12/21/2007 19:44 Transcribed: 12/21/2007 19:37 SJ Procedure Note Carey Corral - 12/21/2007 [facility] [address] [place], [place] [address] Admit Date: 12/19/2007 JOVITA STALEY Sex: F Admit Prov: KOLTON FROST Date: 1970 Primary Care Prov: PCP , NONE CMRN: [id number] Room: [place] [address] SSN: [id number] IMAGING SERVICES Ordering Prov: N/A Interpretation KUB 12/21/2007 History: Abdominal pain. Technique: Single AP view of the abdomen and pelvis was obtainedand compared with a previous study dated 12/20/2007. Findings: The bowel gas pattern is nonobstructed. Surgical clipsare identified within the left hemipelvis. Phleboliths are identifiedwithin the pelvis. Probable splenic granulomas are identified in the leftupper quadrant. Impression: Nonobstructive bowel gas pattern. No metallic foreign bodyidentified. . Dictated by: CAREY CORRAL 12/21/2007 19:32 Electronically signed by: CAREY CORRAL 12/21/2007 19:44 Transcribed: 12/21/2007 19:37 SJ us Ramiro Lanier MD DIAGNOSTIC IMAGING ORDERABLES F inal Result * (ABNORMAL) COMPREHENSIVE METABOLIC PANEL (12/21/2007 12:45 AM CDT) ALKALINE PHOSPHATASE 121(H) 35 - 104 U/L [facility] CO2 24 22 - 30 mmol/L [facility] BILIRUBIN TOTAL 0.2 0.2 - 1.0 mg/dL [facility] POTASSIUM 3.6 3.5 - 4.9 mmol/L [facility] TOTAL PROTEIN 6.8 6.3 - 8.6 g/dL [facility] GLUCOSE 82 65 - 99 mg/dL [facility] AST 58(H) 12 - 32 U/L [facility] BUN 11 6 - 20 mg/dL [facility] CALCIUM 8.2(L) 8.4 - 10.2 mg/dL [facility] ALBUMIN 3.5 3.4 - 4.8 g/dL [facility] CHLORIDE 101 96 - 108 mmol/L [facility] CREATININE 0.85 0.51 - 0.95 mg/dL [facility] ALT 41(H) 0 - 31 U/L [facility] SODIUM 136 135 - 145 mmol/L [facility] GFR, >60 >=60 mL/min/1. 7 sq meter [facility] GFR >60 >=60 mL/min/1. 7 sq meter [facility] Comment: Estimated GFR rate interpretative information for both Americans and non- Americans is available on the [facility] Intranet at: [email or web address] Select: Lab Policies and Procedures Select: Reference Ranges - GFR Blood specimen (specimen) 12/21/2007 12:45 AM CDT 12/21/2007 12:52 AM CDT us Ramiro Lanier MD CHEMISTRY ORDERABLES Edited [facility] [address] [facility] [place] [address] * (ABNORMAL) CBC WITH DIFFERENTIAL (12/21/2007 12:45 AM CDT) PLATELETS 326 140 - 350 K/uL [facility] HEMOGLOBIN 10.5(L) 11.8 - 14.8 g/dL [facility] RDW 13.2 11.5 - 14.5 % [facility] WBC 4.9 4.0 - 9.8 K/uL [facility] MCH 29.0 27.2 - 32.6 pg [facility] MPV 9.3 9.3 - 12.4 fL [facility] HEMATOCRIT 31.8(L) 35.5 - 44.0 % [facility] RDW-STDEV 42.4 37.1 - 48.7 fL [facility] RBC 3.62(L) 3.90 - 4.90 M/uL [facility] MCHC 33.0 31.5 - 35.5 % [facility] MCV 87.8 82.0 - 99.0 fL [facility] EOSINOPHILS 1 0 - 7 % [facility] EOSINOPHIL ABSOLUTE 0.07 0.00 - 0.70 K/uL [facility] LYMPHOCYTES 34 16 - 45 % [facility] LYMPHOCYTE ABSOLUTE 1.66 0.70 - 4.50 K/uL [facility] BASOPHILS 0 0 - 2 % [facility] BASOPHILS ABSOLUTE 0.02 0.00 - 0.20 K/uL [facility] MONOCYTES 8 3 - 13 % [facility] MONOCYTE ABSOLUTE 0.39 0.10 - 1.30 K/uL [facility] NEUTROPHILS 56 45 - 70 % [facility] NEUTROPHIL ABSOLUTE 2.72 1.90 - 7.00 K/uL [facility] Blood specimen (specimen) 12/21/2007 12:45 AM CDT 12/21/2007 12:52 AM CDT us Ramiro Lanier MD HEMATOLOGY ORDERABLES Edited INTERFACE SYSTEM Refer to clinic/hospital department [facility] [address] [place] [address] * XR BARIUM ENEMA (12/20/2007 9:15 AM CDT) Anatomical Region Laterality Modality Abdomen Other 12/20/2007 9:15 AM CDT Narrative 12/20/2007 12:23 PM CDT [address] [place], [place] [address] Admit Date: 12/19/2007 JOVITA STALEY Sex: F Admit Prov: KOLTON FROST Date: 1970 Primary Care Prov: PCP , NONE CMRN: [id number] Room: [place] [address] 3 SSN: [id number] IMAGING SERVICES Ordering Prov: N/A Accession Number: [id number] Interpretation EXAM: HYPAQUE ENEMA, 12/20/07 Indication: Abdominal pain, history of colon cancer 10 years ago with partial colon resection. Constipation. Findings: A pick out hand view reveals a large amount of stool scattered throughout the ascending, transverse, descending and sigmoid colon. After contrast administration per rectum, there is opacification of a normal appearing rectum and distal sigmoid. The proximal sigmoid, ascending, transverse and descending colon are also opacified. Contrast surrounds a large amount of stool throughout this portion of colon. Contrast travels all the way to the cecum. There is no abnormal bowel dilatation. There is no evidence of stricture. Study is nondiagnostic for polyps given the large amount of stool. On a post-evac film there is collapse of the rectum, sigmoid and distal descending colon. Impression: Lots of stool in the ascending, transverse and descending colon. No evidence of obstruction or stricture. . Dictated by: SHADI GAGE 12/20/2007 10:28 Electronically signed by: SHADI GAGE 12/20/2007 12:23 Transcribed: 12/20/2007 12:01 LE Procedure Note Shadi Gage - 12/20/2007 [address] [place], [place] [address] Admit Date: 12/19/2007 JOVITA STALEY Laci Sex: F Admit Prov: KOLTON FROST Date: 1970 Primary Care Prov: PCP , NONE CMRN: [id number] Room: [place] [address] SSN: [id number] IMAGING SERVICES Ordering Prov: N/A Interpretation EXAM: HYPAQUE ENEMA, 12/20/07 Indication: Abdominal pain, history of colon cancer 10 years agowith partial colon resection. Constipation. Findings: A pick out hand view reveals a large amount of stool scattered throughoutthe ascending, transverse, descending and sigmoid colon. After contrast administration per rectum, there is opacification of a normalappearing rectum and distal sigmoid. The proximal sigmoid, ascending,transverse and descending colon are also opacified. Contrast surrounds a largeamount of stool throughout this portion of colon. Contrast travels all the wayto the cecum. There is no abnormal bowel dilatation. There is no evidenceof stricture. Study is nondiagnostic for polyps given the large amountof stool. On a post-evac film there is collapse of the rectum, sigmoidand distal descending colon. Impression: Lots of stool in the ascending, transverse and descending colon. No evidence of obstruction or stricture. . Dictated by: SHADI GAGE 12/20/2007 10:28 Electronically signed by: SHADI GAGE 12/20/2007 12:23 Transcribed: 12/20/2007 12:01 LE Ehsan Dupont MD DIAGNOSTIC IMAGING ORDERABL ES Final Result * (ABNORMAL) TSH (12/20/2007 6:50 AM CDT) Pathologist [facility] TSH 5.74(H) 0.27 - 4.20 uU/mL [facility] Blood specimen (specimen) 12/20/2007 6:50 AM CDT 12/20/2007 3:22 PM CDT Ramiro Lanier MD CHEMISTRY ORDERABLES Final Resu lt [facility] [address] [place] [address] * (ABNORMAL) T4 FREE (12/20/2007 6:50 AM CDT) T4 FREE 0.6(L) 0.9 - 1.7 ng/dL [facility] Blood specimen (specimen) 12/20/2007 6:50 AM CDT 12/20/2007 3:22 PM CDT Ramiro Lanier MD CHEMISTRY ORDERABLES Final Resu lt Performing Organization Address [facility] Co de Phone Number [facility] [address] [place], [place] [address] * (ABNORMAL) C-REACTIVE PROTEIN (12/20/2007 6:50 AM CDT) CRP 1.1(H) 0.0 - 0.8 mg/dL [facility] Blood specimen (specimen) 12/20/2007 6:50 AM CDT 12/20/2007 6:55 AM CDT Adriano Roberts MD CHEMISTRY ORDERABLES Final Res ult Performing Organization Address [facility] Co de Phone Number [facility] [address] [place] [address] * LIPASE (12/20/2007 6:50 AM CDT) LIPASE 24 13 - 60 U/L [facility] Blood specimen (specimen) 12/20/2007 6:50 AM CDT 12/20/2007 6:55 AM CDT Adriano Roberts MD CHEMISTRY ORDERABLES Final Res ult Performing Organization Address [facility] Co de Phone Number [facility] [address] [place] [address] * AMYLASE (12/20/2007 6:50 AM CDT) AMYLASE 33 28 - 100 U/L [facility] Blood specimen (specimen) 12/20/2007 6:50 AM CDT 12/20/2007 6:55 AM CDT Adriano Roberts MD CHEMISTRY ORDERABLES Final Res ult Performing Organization Address [facility] de Phone Number [facility] [address] [place] [address] * LACTIC ACID (12/20/2007 6:50 AM CDT) LACTIC ACID 0.5 0.5 - 2.2 mmol/L [facility] Blood specimen (specimen) 12/20/2007 6:50 AM CDT 12/20/2007 6:55 AM CDT Adriano Roberts MD CHEMISTRY ORDERABLES Final Res ult Performing Organization Address [facility] de Phone Number [facility] [address] [place], [place] [address] * LACTATE DEHYDROGENASE (12/20/2007 6:50 AM CDT) LD (LACTATE DEHYDROGENASE) 205 135 - 214 U/L [facility] Comment: Slight hemolysis present. Result may be falsely elevated. Blood specimen (specimen) 12/20/2007 6:50 AM CDT 12/20/2007 6:55 AM CDT Adriano Roberts MD CHEMISTRY ORDERABLES Final Res ult Performing Organization Address [facility] Co de Phone Number [facility] [address] [place] [address] * XR CONSULTATION (12/19/2007 11:41 AM CDT) 12/19/2007 11:4 1 AM CDT Narrative INTERFACE SYSTEM - 12/24/2007 7:27 PM CDT [facility] [address] [place], [place] [address] Admit Date: 12/19/2007 JOVITA STALEY Sex: F Admit Prov: VEDIRE, KOLTON Date: 1970 Primary Care Prov: PCP , NONE CMRN: [id number] Room: [place] [address] 3 SSN: [id number] IMAGING SERVICES Ordering Prov: ADRIANO ROBERTS Accession Number: [id number] Interpretation The procedure was performed by Radiology Department nursing staff. Dictated by: RADIOLOGY, DEPARTMENT O Electronically signed by: RADIOLOGY, DEPARTMENT 12/24/2007 19:27 Transcribed: 12/24/2007 19:16 AMK Procedure Note Provider, Historical - 12/24/[address] [address] Admit Date: 12/19/2007 JOVITA STALEY Sex: F Admit Prov: KOLTON FROST Date: 1970 Primary Care Prov: PCP , NONE CMRN: [id number] Room: [place] [address] SSN: [id number] IMAGING SERVICES Ordering Prov: ADRIANO ROBERTS Interpretation The procedure was performed by Radiology Department nursing staff. Dictated by: RADIOLOGY, DEPARTMENT O Electronically signed by: RADIOLOGY, DEPARTMENT 12/24/2007 19:27 Transcribed: 12/24/2007 19:16 AMK Adriano Roberts MD DIAGNOSTIC IMAGING ORDERABLES Final Result Performing Organization Address City/State/[facility] Co de Phone Number INTERFACE SYSTEM Refer to clinic/hospital department * XR FLUORO LOCAL NEEDLE BX ASP (12/19/2007 11:40 AM CDT) Anatomical Region Laterality Modality Other 12/19/2007 11:4 0 AM CDT Narrative 12/19/2007 4:46 PM CDT [address] [address] Admit Date: 12/19/2007 JOVITA STALEY Sex: F Admit Prov: KOLTON FROST Date: 1970 Primary Care Prov: PCP , NONE CMRN: [id number] Room: [place] [address] SSN: [id number] IMAGING SERVICES Ordering Prov: N/A Accession Number: [id number] Interpretation Fluoroscopic-guided placement of an upper extremity PICC line. 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 Following placement of a left upper extremity PICC line by the radiology nurse, a single fluoroscopic image of the chest demonstrates the catheter tip superimposing the expected course of the superior vena cava. The catheter length is reported at 41 cm . This is an interpretation report only. No supervision or assistance was provided by the author of this report during the placement of the PICC line described above. . Dictated by: GORDON REYES 12/19/2007 16:45 Electronically signed by: GORDON REYES 12/19/2007 16:46 Procedure Note Gordon Reyes MD - 12/19/[address] [address] Admit Date: 12/19/2007 JOVITA STALEY Sex: F Admit Prov: KOLTON FROST Date: 1970 Primary Care Prov: PCP , NONE CMRN: [id number] Room: [place] [address] SSN: [id number] IMAGING SERVICES Ordering Prov: N/A Interpretation Fluoroscopic-guided placement of an upper extremity PICC line. History: Poor venous access, in need of mcc venous access. Following placement of a left upper extremity PICC line by theradiology nurse, a single fluoroscopic image of the chest demonstrates thecatheter tip superimposing the expected course of the superior vena cava.The catheter length is reported at 41 cm . This is an interpretation report only. No supervision or assistancewas provided by the author of this report during the placement of thePICC line described above. . Dictated by: GORDON REYES 12/19/2007 16:45 Electronically signed by: GORDON REYES 12/19/2007 16:46 Adriano Roberts MD DIAGNOSTIC IMAGING ORDERABLES Final Result * MAGNESIUM LEVEL (12/19/2007 8:31 AM CDT) MAGNESIUM 2.0 1.5 - 2.5 mg/dL [facility] Blood specimen (specimen) 12/19/2007 8:31 AM CDT 12/19/2007 8:40 AM CDT Kolton Frost MD CHEMISTRY ORDERABLES Final Resu lt [facility] [address] [employer] [facility] [address] [place] [address] * (ABNORMAL) CBC WITH DIFFERENTIAL (12/19/2007 8:31 AM CDT) MCH 29.0 27.2 - 32.6 pg [facility] MPV 9.5 9.3 - 12.4 fL [facility] RBC 3.62(L) 3.90 - 4.90 M/uL [facility] MCV 89.0 82.0 - 99.0 fL [facility] RDW-STDEV 42.3 37.1 - 48.7 fL [facility] WBC 4.8 4.0 - 9.8 K/uL [facility] HEMATOCRIT 32.2(L) 35.5 - 44.0 % [facility] MCHC 32.6 31.5 - 35.5 % [facility] HEMOGLOBIN 10.5(L) 11.8 - 14.8 g/dL [facility] PLATELETS 350 140 - 350 K/uL [facility] RDW 13.1 11.5 - 14.5 % [facility] BASOPHILS 0 0 - 2 % [facility] BASOPHILS ABSOLUTE 0.01 0.00 - 0.20 K/uL [facility] MONOCYTES 8 3 - 13 % [facility] MONOCYTE ABSOLUTE 0.36 0.10 - 1.30 K/uL [facility] NEUTROPHILS 61 45 - 70 % [facility] NEUTROPHIL ABSOLUTE 2.92 1.90 - 7.00 K/uL [facility] EOSINOPHILS 3 0 - 7 % [facility] EOSINOPHIL ABSOLUTE 0.12 0.00 - 0.70 K/uL [facility] LYMPHOCYTES 29 16 - 45 % [facility] LYMPHOCYTE ABSOLUTE 1.40 0.70 - 4.50 K/uL [facility] Blood specimen (specimen) 12/19/2007 8:31 AM CDT 12/19/2007 8:40 AM CDT us Kolton Frost MD HEMATOLOGY ORDERABLES Edited Performing Organization Address City/State/[facility] Co de Phone Number INTERFACE SYSTEM Refer to clinic/hospital department [facility] [address] [facility] [place] [address] * CT ABDOMEN PELVIS WO CONTRAST (12/18/2007 10:09 PM CDT) Anatomical Region Laterality Modality Abdomen Other 12/18/2007 10:0 9 PM CDT Narrative 12/18/2007 10:38 PM CDT [facility] [address] [place], [place] [address] Admit Date: 12/18/2007 STALEY, JOVITA A Sex: F Admit Prov: ER, AUTHORIZED P Date: 1970 Primary Care Prov: PCP , NONE CMRN: [id number] Room: ER-A [id number]: [id number] IMAGING SERVICES Ordering Prov: N/A Accession Number: [id number] Interpretation Exam: CT the abdomen and pelvis without intravenous contrast. History: Abdominal pain. Possible obstruction. CT of the abdomen and pelvis is performed without intravenous contrast. Oral contrast is not given specifically for this procedure. Contiguous spiral imaging is performed from above diaphragm to below the symphysis pubis. Images are reconstructed in the axial plane at 5 mm intervals. Lung liver soft tissue and bone windows are reviewed. The lung bases are clear. The liver, spleen, pancreas, adrenal glands, and kidneys are unremarkable on this noncontrast exam. There is a large amount of stool and colon consistent with constipation. There is no evidence of bowel obstruction. The uterus is surgically absent. No free air, free fluid, or focal acute inflammatory process is seen. There is some contrast noted in the sigmoid colon consistent with prior contrast procedure. Correlation with recent history of contrast procedures recommended. In the sigmoid colon there is also noted to be a radiopaque metallic density noted. This may represent a GI endoscopic capsule. Correlation with any history of recent endoscopic capsule is recommended. This lesion does not cause obstruction at this time and will likely pass through the rectum. Lesion measures approximately 1.5 cm by 1 cm. Impression: Large amount of stool in the colon consistent with constipation. There is no evidence of bowel obstruction currently. There is some contrast noted in the sigmoid colon consistent with prior contrast procedure. Correlation with history of prior contrast procedures recommended. Oval metallic foreign body within the sigmoid colon which may represent prior endoscopic capsule. Correlation with any history of recent endoscopic camera capsule is recommended. This lesion measures 1.5 cm x 1 cm and is not causing obstruction currently. No additional finding. There is no acute inflammatory process. No fluid collection or free air is seen. . Dictated by: EDWIN LEAL 12/18/2007 22:33 Electronically signed by: EDWIN LEAL 12/18/2007 22:38 Procedure Note Edwin Leal - 12/18/2007 [facility] [address], [place] [address] Admit Date: 12/18/2007 JOVITA STALEY Laci Sex: F Admit Prov: ER, AUTHORIZED P Date: 1970 Primary Care Prov: PCP , NONE CMRN: [id number] Room: ER-A SSN: [id number] IMAGING SERVICES Ordering Prov: N/A Interpretation Exam: CT the abdomen and pelvis without intravenous contrast. History: Abdominal pain. Possible obstruction. CT of the abdomen and pelvis is performed without intravenouscontrast. Oral contrast is not given specifically for this procedure. Contiguous spiral imaging is performed from above diaphragm to belowthe symphysis pubis. Images are reconstructed in the axial plane at 5mm intervals. Lung liver soft tissue and bone windows are reviewed. The lung bases are clear. The liver, spleen, pancreas, adrenalglands, and kidneys are unremarkable on this noncontrast exam. There is a largeamount of stool and colon consistent with constipation. There is no evidenceof bowel obstruction. The uterus is surgically absent. No free air,free fluid, or focal acute inflammatory process is seen. There is somecontrast noted in the sigmoid colon consistent with prior contrastprocedure. Correlation with recent history of contrast procedures recommended. In the sigmoid colon there is also noted to be a radiopaquemetallic density noted. This may represent a GI endoscopic capsule.Correlation with any history of recent endoscopic capsule is recommended. This lesiondoes not cause obstruction at this time and will likely pass through therectum. Lesion measures approximately 1.5 cm by 1 cm. Impression: Large amount of stool in the colon consistent with constipation. There is no evidence of bowel obstruction currently.There is some contrast noted in the sigmoid colon consistent with priorcontrast procedure. Correlation with history of prior contrast procedures recommended. Oval metallic foreign body within the sigmoid colon which mayrepresent prior endoscopic capsule. Correlation with any history of recentendoscopic camera capsule is recommended. This lesion measures 1.5 cm x 1 cm andis not causing obstruction currently. No additional finding. There is no acute inflammatory process. Nofluid collection or free air is seen. . Dictated by: EDWIN LEAL 12/18/2007 22:33 Electronically signed by: EDWIN LEAL 12/18/2007 22:38 us Rafael Betancourt MD CT ORDERABLES Final Result * (ABNORMAL) CBC WITH DIFFERENTIAL (12/18/2007 10:02 PM CDT) RDW-STDEV 43.1 37.1 - 48.7 fL [facility] RBC 3.60(L) 3.90 - 4.90 M/uL [facility] MCHC 32.9 31.5 - 35.5 % [facility] MCV 89.4 82.0 - 99.0 fL [facility] PLATELETS 402(H) 140 - 350 K/uL [facility] HEMOGLOBIN 10.6(L) 11.8 - 14.8 g/dL [facility] RDW 13.5 11.5 - 14.5 % [facility] WBC 6.4 4.0 - 9.8 K/uL [facility] MCH 29.4 27.2 - 32.6 pg [facility] MPV 9.9 9.3 - 12.4 fL [facility] HEMATOCRIT 32.2(L) 35.5 - 44.0 % [facility] MONOCYTES 4 3 - 13 % [facility] MONOCYTE ABSOLUTE 0.27 0.10 - 1.30 K/uL [facility] NEUTROPHILS 62 45 - 70 % [facility] NEUTROPHIL ABSOLUTE 3.94 1.90 - 7.00 K/uL [facility] EOSINOPHILS 2 0 - 7 % [facility] EOSINOPHIL ABSOLUTE 0.13 0.00 - 0.70 K/uL [facility] LYMPHOCYTES 31 16 - 45 % [facility] LYMPHOCYTE ABSOLUTE 1.99 0.70 - 4.50 K/uL [facility] BASOPHILS 1 0 - 2 % [facility] BASOPHILS ABSOLUTE 0.03 0.00 - 0.20 K/uL [facility] Blood specimen (specimen) 12/18/2007 10:02 PM CDT 12/18/2007 10:08 PM CDT us Rafael Betancourt MD HEMATOLOGY ORDERABLES Edited [facility] [address] [facility] [place] [address] * (ABNORMAL) COMPREHENSIVE METABOLIC PANEL (12/18/2007 9:24 PM CDT) CO2 26 22 - 30 mmol/L [facility] TOTAL PROTEIN 7.4 6.3 - 8.6 g/dL [facility] POTASSIUM 4.2 3.5 - 4.9 mmol/L [facility] GLUCOSE 83 65 - 99 mg/dL [facility] AST 22 12 - 32 U/L [facility] BUN 9 6 - 20 mg/dL [facility] CALCIUM 8.9 8.4 - 10.2 mg/dL [facility] CHLORIDE 102 96 - 108 mmol/L [facility] ALBUMIN 3.7 3.4 - 4.8 g/dL [facility] CREATININE 0.77 0.51 - 0.95 mg/dL [facility] SODIUM 139 135 - 145 mmol/L [facility] ALT 16 0 - 31 U/L [facility] ALKALINE PHOSPHATASE 110(H) 35 - 104 U/L [facility] BILIRUBIN TOTAL 0.1(L) 0.2 - 1.0 mg/dL [facility] GFR, >60 >=60 mL/min/1. 7 sq meter [facility] GFR >60 >=60 mL/min/1. 7 sq meter [facility] Comment: Estimated GFR rate interpretative information for both Americans and non- Americans is available on the [facility] Intranet at: [email or web address] Select: Lab Policies and Procedures Select: Reference Ranges - GFR Blood specimen (specimen) 12/18/2007 9:24 PM CDT 12/18/2007 9:30 PM CDT Rafael Betancourt MD CHEMISTRY ORDERABLES E dited [facility] [address] [place] [address] documented in this encounter Visit Diagnoses Diagnosis Abdominal pain, unspecified site documented in this encounter Care Teams Exhaust Tender Relationship Specialty Start Date End Date [facility], External Provider [address] [place] [address] PCP - General 11/07/12 documented as of this encounter
--- OUTSIDE RECORDS SUMMARY | 2025-03-20 12:02 | XMS_ITS ---
Author Organization [facility] Address [address] [place] [address] Phone Care Team Providers Care Supplier Diversity Director Name Role Phone [facility] Primary Care Provider U navailable Active Problems Problem Noted Date Diagnosed Date Generalized abdominal pain 08/17/2016 Ileus 08/17/2016 Chronic anemia 08/17/2016 Leukopenia 08/17/2016 Substance abuse 03/14/2013 Nausea & vomiting 03/08/2011 Abdominal pain 03/04/2011 SBO (small bowel obstruction) 03/04/2011 Anemia 03/04/2011 Malignant tumor of colon Overview (03/04/2011): Also h/o cervical and ovarian cancer, s/p surgeries Bipolar disorder Current Treatment and Therapy Plans No current plan information found. Past Treatment and Therapy Plans No past plan information found. Lifetime Dose Tracking * Chemical Lifetime Dose Automatic Entry Manual Entr y Effective Dose 23.9 mSv 23.9 mSv 0 mSv Total DLP 1,240 DLP 1,240 DLP 0 DLP CTDIvol Max 25.3 mGy 25.3 mGy 0 mGy CTDIvol Min 22.3 mGy 22.3 mGy 0 mGy
--- OUTSIDE RECORDS SUMMARY | 2025-03-20 12:02 | XMS_ITS | Encounter Summary ---
Author Organization [facility] Healthcare Address [address] [place] [address] Care Team Providers Care Outsole Leveler Name Role Phone No, Physician Primary Care Provider [phone] Miscellaneous, Not In File Unavailable Unava ilable Encounter Details Date Type Department Care Team (Late st Contact Info) Description 11/28/2024 Telephone [facility] [address] [address] [address] [place], [place] [id number] Lefty Herrera Social History Tobacco Use Types Packs/Day Years Used Date Smoking Tobacco: Never Smokeless Tobacco: Never Alcohol Use Standard Drinks/Week Comments Defer 0 (1 standard drink = 0.6 oz pur e alcohol) Personal Safety Answer Date Recorded Have you ever been in or are you currently in a harmful physical or emotional relationship or is someone making you feel afraid or unsafe? Denies 11/21/2024 Comments No Sex and Gender Information Value Date Recorded Sex Assigned at Not on file Legal Sex Female 12:55 AM BLADE FILER Gender Identity Not on file Sexual Orientation Not on file documented as of this encounter Plan of Treatment Not on file documented as of this encounter Visit Diagnoses Not on filedocumented in this encounter Additional Health Concerns Infection Onset Date Last Indicated Resolved Time C. difficile 02/25/2013 02/24/2013 documented as of this encounter Care Teams Outsole Leveler Relationship Specialty Start Date End Date No, Physician PCP - General 04/03/18 Miscellaneous, Not In File 04/03/18 documented as of this encounter
--- OUTSIDE RECORDS SUMMARY | 2025-03-20 12:02 | XMS_ITS | Clinical Summary ---
Author Organization [facility] Address [address] [place] [address] Care Team Providers Care Flow Floor Attendant Name Role Phone None, Provider MD Primary Care Provider Unavaila ble Allergies Active Allergy Reactions Criticality Noted Date Comments Fentanyl Unknown 07/26/2018 Sulfa Antibiotics Unknown 07/26/2018 Social History Tobacco Use Types Packs/Day Years Used Date Smoking Tobacco: Former Smokeless Tobacco: Never Alcohol Use Standard Drinks/Week Comments Yes 0 (1 standard drink = 0.6 oz pur e alcohol) Comments Unknown Sex and Gender Information Value Date Recorded Sex Assigned at Not on file Legal Sex Female 7:20 PM CDT Gender Identity Not on file Sexual Orientation Not on file Last Filed Vital Signs Vital Sign Reading Time Taken Comments Blood Pressure 147/104 02/28/2024 12:41 AM CDT Pulse 113 02/28/2024 12:41 AM CDT Temperature 36.5 C (97.7 F) 02/28/2024 12:41 AM CDT Respiratory Rate 20 02/28/2024 12:41 AM CDT Oxygen Saturation 94% 02/28/2024 12:41 AM CDT Inhaled Oxygen Concentration - - Weight 54.4 kg (120 lb) 02/28/2024 12:41 AM CDT Height 170.2 cm (5' 7) 02/28/2024 12:41 AM CDT Body Mass Index 18.79 02/28/2024 12:41 AM CDT Plan of Treatment Health Maintenance Due Date Last Done Comments Cervical Cancer Screening Pa p Smear (Age 30 to 64) Every 3 Years 1970 Colorectal Cancer Screening Colonoscopy (10 Years) 1970 Annual Physical 1973 Hepatitis C 1988 Cervical Cancer Screening Pa p with HPV Testing (Age 30 to 64) Every 5 Years 2000 Cervical Cancer Screening with HPV 2000 Mammogram Screening 2010 Pneumococcal Vaccine: 50+ Ye ars (2 of 2 - PCV) 2020 07/16/2014 Hepatitis B Vaccines (2 of 3 - 19+ 3-dose series) 04/29/2023 04/01/2023 Zoster Vaccines (2 of 2) 05/27/2023 04/01/2023 COVID-19 Vaccine (1 - 2023-2 5 season) 2024 PHQ-2 (Physician [place]) 08/16/2024 DTaP, Tdap and Td Vaccines ( 2 - Td or Tdap) 04/01/2033 04/01/2023 Meningococcal B Vaccine Aged Out No l onger eligible based on patient's age to complete this topic Meningococcal Vaccine Aged Out No octaviano yoandy eligible based on patient's age to complete this topic RSV Immunizations Under 20 Months Aged Out No longer eligible based on patient's age to complete this topic Insurance Advance Directives Documents on File Type Date Recorded 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
--- OUTSIDE RECORDS SUMMARY | 2025-03-20 12:02 | XMS_ITS | Clinical Summary ---
Author Organization [facility] Address [address] [place] [address] Phone Care Team Providers Care Candy Separator Enrobing Name Role Phone [facility], External Provider Primary Care Provider U navailable Allergies Active Allergy Reactions Criticality Noted Date Comments Adhesive Unknown 08/16/2016 Citalopram Swelling Medium 08/20/2016 Dicyclomine Seizure High 02/23/2011 Fentanyl Hives High 02/23/2011 Ketorolac Hives High 02/23/2011 Meperidine Nausea and Vomiting Low 02/23/2011 Morphine Itching Low 02/23/2011 Nalbuphine Hives High 02/23/2011 Sulfa (Sulfonamide Antibiotics) Unknown 02/13 Medications OXcarbazepine (TRILEPTAL) 300 mg Oral tablet Take 300 mg by mouth 2 times daily. Active ondansetron (ZOFRAN ODT) [address] 8 mg inside cheek every 8 hours as needed. Active psyllium (METAMUCIL) 1.7 g Oral Wafr Take 1.7 Gram by mouth 1 time daily as needed. Active promethazine (PHENERGAN) 25 mg Rectal Supp Insert 1 Suppository by rectum every 6 hours as needed for Nausea/Emesis. 30 Suppository None 1 Active metoclopramide (REGLAN) 10 mg Oral tablet Take 1 Tab by mouth every 8 hours. 120 Tab 0 1 Active OLANZapine (ZYPREXA ZYDIS) [address] 10 mg inside cheek daily at bedtime. Active zolpidem (AMBIEN) 10 mg Oral tablet Take 10 mg by mouth nightly as needed. 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 Active HYDROmorphone (DILAUDID) 8 mg Tablet Take 8 mg by mouth every 4 hours as needed for Pain or Pain, Severe. Active clonazePAM (KlonoPIN) 1 mg tabletIndicati ons:anxiety Take 1 mg by mouth 3 times daily. Active Methadone (DOLOPHINE) 40 mg Tablet, SolubleIndicat ions:severe pain Take 40 mg by mouth 3 times daily. Active oxyCODONE-acet aminophen (PERCOCET) 10-325 mg Tablet Take 1 Tablet by mouth every 4 hours as needed for Pain, Severe. 30 Tablet 7 Active Active Problems Problem Noted Date Diagnosed Date Generalized abdominal pain 08/17/2016 Ileus 08/17/2016 Chronic anemia 08/17/2016 Leukopenia 08/17/2016 Substance abuse 03/14/2013 Nausea & vomiting 03/08/2011 Abdominal pain 03/04/2011 SBO (small bowel obstruction) 03/04/2011 Anemia 03/04/2011 Malignant tumor of colon Overview (03/04/2011): Also h/o cervical and ovarian cancer, s/p surgeries Bipolar disorder Immunizations Immunization Administration Dates Next Due Influenza Seasonal Unspecified Formulation IM Pneumococcal conjugate, unspecified formulation 04/16/2016 Family History Medical History Relation Name Comments Healthy Father Cancer Maternal Grandmother Cancer Mother Relation Name Status Comments Father Alive Maternal Grandmother Mother Social History Tobacco Use Types Packs/Day Years Used Date Smoking Tobacco: Never Alcohol Use Standard Drinks/Week Comments No 0 (1 standard drink = 0.6 oz pur e alcohol) Comments No Sex and Gender Information Value Date Recorded Sex Assigned at Not on file Legal Sex Female 5:04 AM DITCHER OPERATOR Gender Identity Not on file Sexual Orientation Not on file Occupation Industry Job Start Date Job End Date Not on file Not on file Not on file Not on file Last Filed Vital Signs Vital Sign Reading Time Taken Comments Blood Pressure 136/67 08/22/2016 7:55 AM DITCHER OPERATOR Pulse 58 08/22/2016 7:55 AM DITCHER OPERATOR Temperature 37 C (98.6 F) 08/22/2016 7:55 AM DITCHER OPERATOR Respiratory Rate 16 08/22/2016 7:55 AM DITCHER OPERATOR Oxygen Saturation 97% 08/22/2016 7:55 AM DITCHER OPERATOR Inhaled Oxygen Concentration - - Weight 71 kg (156 lb 8 oz) 08/22/2016 6:59 AM CS T Height 167.6 cm (5' 6) 08/17/2016 12:52 AM DITCHER OPERATOR Body Mass Index 25.26 08/17/2016 12:52 AM DITCHER OPERATOR Plan of Treatment Health Maintenance Due Date Last Done Comments DTAP/TDAP/TD VACCINES (1 - Tdap) 1989 HEPATITIS B VACCINES (1 of 3 - 19+ 3-dose series) 10/14 BREAST CANCER SCREENING 2010 ZOSTER VACCINE (1 of 2) 2020 INFLUENZA VACCINE (#1) 2025 05/16/2016 Insurance Advance Directives For more information, please contact: [phone] * Full Code (Latest Code Status on File) Date Activated Date Inactivated Comments 08/17/2016 5:01 AM 08/22/2016 2:36 PM * Full Code Date Activated Date Inactivated Comments 03/08/2011 11:50 PM 03/10/2011 5:43 PM * Full Code Date Activated Date Inactivated Comments 03/08/2011 10:25 PM 03/08/2011 11:50 PM * Full Code Date Activated Date Inactivated Comments 03/04/2011 7:29 PM 03/06/2011 5:42 PM Care Teams Candy Separator Enrobing Relationship Specialty Start Date End Date [facility], External Provider [address] [place] [address] PCP - General 11/07/12
--- OUTSIDE RECORDS SUMMARY | 2025-03-20 12:02 | XMS_ITS | Patient Health Record ---
Author Organization [facility] Address [address] [facility] [address] [place] [address] Care Team Providers Care Top Frame Maker Name Role Phone Nicholas Birch Unavailable [phone] Reason For Referral No Information Plan Of Treatment No Information
--- OUTSIDE RECORDS SUMMARY | 2025-03-20 12:02 | XMS_ITS | Referral Summary ---
Author Organization [facility] Address [address] [place] [address] Care Team Providers Care Deputy Sheriff Custody Name Role Phone No, Physician Primary Care Provider [phone] Miscellaneous, Not In File Unavailable Unava ilable Encounters Date Type Department Care Team Description 03/14/2025 Orders Only [facility] Orthopaedic Surgery [address] 6th [place] [address] [place] [address] Kiel Bradshaw MD Acquired dysplasia of left hip (Primary Dx); Avascular necrosis (HCC) 03/14/2025 Results Follow-Up [facility] Emergency Department [address] [place] [address] Estiven Puckett RN XR Hip Left 2 or 3 Views, XR Spine Lumbar 2 or 3 Views 03/13/2025 5:15 PM CDT - 03/13/2025 7:47 PM CDT Emergency [facility] Emergency Department [address] [place] [address] Pain of left hip (Primary Dx); Osteoarthritis of left hip, unspecified osteoarthritis type Discharge Disposition: Left Against Medical Advice from Last 3 Months Allergies Active Allergy Reactions Criticality Noted Date Comments Adhesive Tape-Silicones Rash,Vomiting Medium 8 Rash and vomiting per the pt. Amitriptyline Hcl Hives,Nausea And Vomiting Medium 05/24/2014 Citalopram Vomiting Low Dicyclomine Vomiting Low Fentanyl Vomiting Low Iron Edema Medium Facial and hand edema per the pt. Ketorolac Rash Medium Reaction: Rash, Meperidine Vomiting Low Morphine Vomiting Low Nalbuphine Vomiting Low Pregabalin Vomiting Low Sulfa (Sulfonamide Antibiotics) Hives Medium Medications venlafaxine (EFFEXOR) 100 mg tablet Take 100 mg by mouth 2 (two) times a day. Active clonazePAM (KlonoPIN) 2 mg tablet Take 2 mg by mouth 2 (two) times a day as needed for seizures. Active zolpidem (AMBIEN) 5 mg tabletIndicatio ns:Sleep-Onset Insomnia Take 5 mg by mouth nightly as needed for sleep. Active ondansetron (ZOFRAN) 4 mg tablet Take 4 mg by mouth every 8 (eight) hours as needed for nausea or vomiting. Active biotin 5 mg capsule 5 mg. Active gabapentin (NEURONTIN) 300 mg capsule Take 1 capsule (300 mg total) by mouth 3 (three) times a day 90 capsule 2 Active naloxone (NARCAN) 4 mg/actuation spray,non-aeros ol Administer 1 spray into affected nostril(s) as needed for opioid reversal Call 911. Administer a single spray in one nostril. Repeat every 3 minutes as needed if no or minimal response. 1 each 2 Active HYDROcodone-remberto taminophen (NORCO) 5-325 mg per tabletIndicatio ns:Pain Take 1 tablet by mouth every 6 (six) hours as needed for pain for up to 10 doses 10 tablet 4 Active oxyCODONE-aceta minophen (PERCOCET) 5-325 mg per tabletIndicatio ns:Pain Take 1 tablet by mouth every 4 (four) hours as needed for pain 20 tablet 4 Active baclofen (LIORESAL) 10 mg tablet Take 1 tablet (10 mg total) by mouth 3 (three) times a day 90 tablet 5 Active oxyCODONE-aceta minophen (PERCOCET) 10-325 mg per tabletIndicatio ns:Pain Take 1 tablet by mouth every 4 (four) hours as needed for pain 8 tablet 5 Active predniSONE (DELTASONE) 20 mg tablet Take 2 tablets (40 mg) by mouth daily 8 tablet 5 Active Active Problems Problem Noted Date Diagnosed Date Opioid dependence 09/15/2021 Abdominal pain 11/14/2012 Constipation 07/15/2011 Social History Tobacco Use Types Packs/Day Years Used Date Smoking Tobacco: Never Smokeless Tobacco: Never Alcohol Use Standard Drinks/Week Comments Defer 0 (1 standard drink = 0.6 oz pur e alcohol) Personal Safety Answer Date Recorded Have you ever been in or are you currently in a harmful physical or emotional relationship or is someone making you feel afraid or unsafe? 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 Gender Identity Not on file Sexual Orientation Not on file Last Filed Vital Signs Vital Sign Reading Time Taken Comments Blood Pressure 136/88 03/13/2025 4:56 PM CDT Pulse 102 03/13/2025 4:56 PM CDT Temperature 37.2 C (98.9 F) 03/13/2025 6:24 PM CDT Respiratory Rate 26 03/13/2025 4:56 PM CDT Oxygen Saturation 98% 03/13/2025 4:56 PM CDT Inhaled Oxygen Concentration - - Weight 52.2 kg (115 lb) 03/13/2025 6:25 PM CDT Height 167.6 cm (5' 5.98) 12/13/2024 12:59 PM C DT Body Mass Index 18.57 12/13/2024 12:59 PM CDT Plan of Treatment Not on file Procedures Procedure Name Priority Date/Time Associated Diagnosis Comments XR HIP LEFT 2 OR 3 VIEWS ED 03/13/2025 6:08 PM CDT XR SPINE LUMBAR 2 OR 3 VIEWS ED 03/13/2025 6:08 PM CDT XR TRANSFER OF OUTSIDE FILMS Routine 03/13/2025 5:49 PM CDT XR TRANSFER OF OUTSIDE FILMS Routine 03/13/2025 5:[address] BODY OUTSIDE REFERENCE Routine 03/13/2025 5:44 PM CDT XR TRANSFER OF OUTSIDE FILMS ED 03/13/2025 5:44 PM CDT from Last 3 Months Results * XR Hip Left 2 or 3 Views (03/13/2025 6:08 PM CDT) Anatomical Region Laterality Modality Lower Extremities, Hip, Pelvis Left C omputed Radiography 03/13/2025 7:17 PM CDT Impressions 03/13/2025 7:50 PM CDT Lumbar spine: Lower lumbar levoscoliosis. No vertebral body compression fracture. No spondylolisthesis. Multilevel disc height loss. Lower lumbar facet arthropathy. Left hip: Severe left hip osteoarthritis with increased partial articular collapse of the femoral head and interval increased degree of superolateral migration compared to the prior study dated 02/28/2025. Surgical clips project over the pelvis. Dictated by: Renato Cohen M.D. The radiology attending physician has personally reviewed this study, and had reviewed and/or edited this written report and agrees with it. Electronically signed by: Tamy Pham M.D. Narrative 03/13/2025 7:50 PM CDT EXAMINATION: XR SPINE LUMBAR 2 OR 3 VIEWS, XR HIP LEFT 2 OR 3 VIEWS HISTORY: pain COMPARISON:02/28/2025 Procedure Note Tamy Pham MD - 03/13/2025 EXAMINATION: XR SPINE LUMBAR 2 OR 3 VIEWS, XR HIP LEFT 2 OR 3 VIEWS HISTORY: pain COMPARISON:02/28/2025 IMPRESSION: Lumbar spine: Lower lumbar levoscoliosis. No vertebral body compression fracture. No spondylolisthesis. Multilevel disc height loss. Lower lumbar facet arthropathy. Left hip: Severe left hip osteoarthritis with increased partial articular collapse of the femoral head and interval increased degree of superolateral migration compared to the prior study dated 02/28/2025. Surgical clips project over the pelvis. Dictated by: Renato Cohen M.D. The radiology attending physician has personally reviewed this study, and had reviewed and/or edited this written report and agrees with it. Electronically signed by: Tamy Pham M.D. us [employer] COMMUNITY PLACEMENT WORKER IMG XR PROCEDURES Final Res ult * XR Spine Lumbar 2 or 3 Views (03/13/2025 6:08 PM CDT) Anatomical Region Laterality Modality Spine N/A Computed Radiogr aphy 03/13/2025 7:17 PM CDT Impressions 03/13/2025 7:50 PM CDT Lumbar spine: Lower lumbar levoscoliosis. No vertebral body compression fracture. No spondylolisthesis. Multilevel disc height loss. Lower lumbar facet arthropathy. Left hip: Severe left hip osteoarthritis with increased partial articular collapse of the femoral head and interval increased degree of superolateral migration compared to the prior study dated 02/28/2025. Surgical clips project over the pelvis. Dictated by: Renato Cohen M.D. The radiology attending physician has personally reviewed this study, and had reviewed and/or edited this written report and agrees with it. Electronically signed by: Tamy Pham M.D. Narrative 03/13/2025 7:50 PM CDT EXAMINATION: XR SPINE LUMBAR 2 OR 3 VIEWS, XR HIP LEFT 2 OR 3 VIEWS HISTORY: pain COMPARISON:02/28/2025 Procedure Note Tamy Pham MD - 03/13/2025 EXAMINATION: XR SPINE LUMBAR 2 OR 3 VIEWS, XR HIP LEFT 2 OR 3 VIEWS HISTORY: pain COMPARISON:02/28/2025 IMPRESSION: Lumbar spine: Lower lumbar levoscoliosis. No vertebral body compression fracture. No spondylolisthesis. Multilevel disc height loss. Lower lumbar facet arthropathy. Left hip: Severe left hip osteoarthritis with increased partial articular collapse of the femoral head and interval increased degree of superolateral migration compared to the prior study dated 02/28/2025. Surgical clips project over the pelvis. Dictated by: Renato Cohen M.D. The radiology attending physician has personally reviewed this study, and had reviewed and/or edited this written report and agrees with it. Electronically signed by: Tamy Pham M.D. [employer] COMMUNITY PLACEMENT WORKER IMG XR PROCEDURES Final Res ult * XR Outside Reference (03/13/2025 5:49 PM CDT) Impressions [facility] - 03/13/2025 5:49 PM CDT These images are for Reference purposes only and have not been reviewed by [facility] Radiology. There will be no report generated by a [facility] Radiologist. Narrative [facility] - 03/13/2025 5:49 PM CDT EXAMINATION: Images For Reference Purposes Only us [employer] COMMUNITY PLACEMENT WORKER IMG XR PROCEDURES Final Res ult Performing Organization Address [facility] de Phone Number [email or web address] * XR Outside Reference (03/13/2025 5:48 PM CDT) Impressions [facility] - 03/13/2025 5:48 PM CDT These images are for Reference purposes only and have not been reviewed by [facility] Radiology. There will be no report generated by a [facility] Radiologist. Narrative [facility] - 03/13/2025 5:48 PM CDT EXAMINATION: Images For Reference Purposes Only us [employer] COMMUNITY PLACEMENT WORKER IMG XR PROCEDURES Final Res ult Performing Organization Address [facility] de Phone Number [email or web address] * CT Body Outside Reference (03/13/2025 5:44 PM CDT) Impressions [facility] - 03/13/2025 5:44 PM CDT These images are for Reference purposes only and have not been reviewed by [facility] Radiology. There will be no report generated by a [facility] Radiologist. Narrative [facility] - 03/13/2025 5:44 PM CDT EXAMINATION: Images For Reference Purposes Only us [employer] COMMUNITY PLACEMENT WORKER IMG CT PROCEDURES Final Res ult Performing Organization Address [facility] de Phone Number [email or web address] * XR Outside Reference (03/13/2025 5:44 PM CDT) Impressions [facility] - 03/13/2025 5:44 PM CDT These images are for Reference purposes only and have not been reviewed by [facility] Radiology. There will be no report generated by a [facility] Radiologist. Narrative [facility] - 03/13/2025 5:44 PM CDT EXAMINATION: Images For Reference Purposes Only us [employer] COMMUNITY PLACEMENT WORKER IMG XR PROCEDURES Final Res ult [facility] from Last 3 Months Additional Health Concerns Infection Onset Date Last Indicated C. difficile 02/25/2013 02/24/2013 Insurance [facility] Advance Directives For more information, please contact: [phone] Documents on File Type Date Recorded Patient Testing Projects Administrator Expl anation ADVANCE DIRECTIVE 06/06/2014 12:00 AM [facility] RELIEF WORKER FINANCIAL/MEDICAL Care Teams Deputy Sheriff Custody Relationship Specialty Start Date End Date No, Physician PCP - General 04/03/18 Miscellaneous, Not In File 04/03/18
--- OUTSIDE RECORDS SUMMARY | 2025-03-20 12:02 | XMS_ITS | Encounter Summary ---
Author Organization [facility] Address [facility] [place] [address] Care Team Providers Care Barrel Endshaker Adjuster Name Role Phone None, Provider Primary Care Provider Sweta saenz Encounter Details Date Type Department Care Team (Late st Contact Info) Description 01/21/2019 Abstract [facility] CONVERSION [address] [place] [address] , Generic Conversion, Social History Tobacco Use Types Packs/Day Years [...] Diagnoses Not on filedocumented in this encounter Care Teams Barrel Endshaker Adjuster Relationship Specialty Start Date End Date None, Provider, PCP - General 07/26/18 documented as of this encounter
--- OUTSIDE RECORDS SUMMARY | 2025-03-20 12:02 | XMS_ITS | Clinical Summary ---
Author Organization [facility] Address [address] [place] [address] Care Team Providers Care Manager Resort Name Role Phone No, Physician Primary Care Provider Miscellaneous, Not In File Unavailable Unava ilable Allergies Active Allergy Reactions Criticality Noted Date [...] dependence 09/15/2021 Abdominal pain 11/14/2012 Constipation 07/15/2011 Encounters Date Type Department Care Team Description 03/14/2025 Orders Only [facility] Orthopaedic Surgery [address] [place] [address] [place] [address] Kiel Bradshaw MD Acquired dysplasia of left hip (Primary Dx); Avascular necrosis (HCC) 03/14/2025 Results Follow-Up [facility] Emergency Department [address] [place] [id number] Estiven Puckett RN XR Hip Left 2 or 3 Views, XR Spine Lumbar 2 or 3 Views 03/13/2025 5:15 PM CDT - 03/13/2025 7:47 PM CDT Emergency [facility] Emergency Department [address] [place] [id number] Pain of left hip (Primary Dx); Osteoarthritis of left hip, unspecified osteoarthritis type Discharge Disposition: Left Against Medical Advice from Last 3 Months Surgical History Surgery Date Site/Laterality Comments NG TUBE PLACEMENT 08/25/2016 N/A ABDOMINAL SURGERY PORT PLACEMENT CHEST >5 YEARS 07/29/2017 N/A PORT PLACEMENT CHEST >5 YEARS 05/28/2017 N/A PORT PLACEMENT CHEST >5 YEARS 05/27/2017 N/A PORT PLACEMENT CHEST >5 YEARS 02/18/2017 N/A PORT PLACEMENT CHEST >5 YEARS 12/10/2016 N/A PORT PLACEMENT CHEST >5 YEARS 12/10/2016 N/A PORT PLACEMENT CHEST >5 YEARS 03/04/2016 N/A PORT PLACEMENT CHEST >5 YEARS 03/04/2016 N/A PORT PLACEMENT CHEST >5 YEARS 06/20/2015 N/A PORT PLACEMENT CHEST >5 YEARS 06/20/2015 N/A PORT PLACEMENT CHEST >5 YEARS 03/26/2015 N/A PORT PLACEMENT CHEST >5 YEARS 10/16/2014 N/A PORT PLACEMENT CHEST >5 YEARS 10/15/2014 N/A PORT PLACEMENT CHEST >5 YEARS 10/15/2014 N/A PORT PLACEMENT CHEST >5 YEARS 03/02/2014 N/A PORT PLACEMENT CHEST >5 YEARS 03/02/2014 N/A PORT PLACEMENT CHEST >5 YEARS 07/28/2013 N/A PORT PLACEMENT CHEST >5 YEARS 07/28/2013 N/A PORT PLACEMENT CHEST >5 YEARS 06/22/2012 N/A PORT PLACEMENT CHEST >5 YEARS 06/22/2012 N/A Medical History Medical History Date Comments Colon cancer (HCC) Bipolar 1 disorder (HCC) Anxiety Social History Tobacco Use Types Packs/Day Years [...] on file Legal Sex Female 12:55 AM 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 Gender Identity Not on file Sexual Orientation Not on file Obstetrics History Last Filed Vital Signs Vital Sign Reading [...] 12/13/2024 12:59 PM CDT Plan of Treatment Health Maintenance Due Date Last Done Comments Breast Cancer Screening-Mammogram 1970 Colon Cancer Screening-Colonoscopy 1970 Depression Screening 1970 Regular Well Visit/Exam 18-64 1988 Pneumococcal vaccine <65 (3 of 3 - PPSV23, PCV20 or PCV21) 04/16/2021 04/16/2016, 07/16/2014, 05/16/2010 Zoster Vaccine (2 of 2) 05/27/2023 04/01/2023 Influenza Vaccine (#1) 2025 9, 05/28/2017, 05/16/2016, Additional history exists DTaP/Tdap/Td Vaccine (2 - Td or Tdap) 04/01/2033 04/01/2023 Hepatitis C Screening Completed 06/24/2013 Hepatitis B Screening Completed 04/01/2023 Procedures Procedure Name Priority Date/Time Associated Diagnosis [...] by: Tamy Pham M.D. us [employer] PAPER MACHINE SUPERVISOR IMG XR PROCEDURES Final Res ult * [...] by: Tamy Pham M.D. us [employer] PAPER MACHINE SUPERVISOR IMG XR PROCEDURES Final Res ult * XR Outside Reference (03/13/2025 5:49 PM CDT) Impressions [facility] - 03/13/2025 5:49 PM CDT These images are for Reference purposes only and have not been reviewed by [facility] Radiology. There will be no report generated by a [facility] Radiologist. Narrative [facility] - 03/13/2025 5:49 PM CDT EXAMINATION: Images For Reference Purposes Only us [employer] PAPER MACHINE SUPERVISOR IMG XR PROCEDURES Final Res ult Performing Organization Address [facility] de Phone Number [email or web address] * XR Outside Reference (03/13/2025 5:48 PM CDT) Impressions [facility] - 03/13/2025 5:48 PM CDT These images are for Reference purposes only and have not been reviewed by [facility] Radiology. There will be no report generated by a [facility] Radiologist. Narrative [facility] - 03/13/2025 5:48 PM CDT EXAMINATION: Images For Reference Purposes Only us [employer] PAPER MACHINE SUPERVISOR IMG XR PROCEDURES Final Res ult Performing Organization Address [facility] de Phone Number [facility] * CT Body Outside Reference (03/13/2025 5:44 PM CDT) Impressions [facility] - 03/13/2025 5:44 PM CDT These images are for Reference purposes only and have not been reviewed by [facility] Radiology. There will be no report generated by a [facility] Radiologist. Narrative [facility] - 03/13/2025 5:44 PM CDT EXAMINATION: Images For Reference Purposes Only us [employer] PAPER MACHINE SUPERVISOR IMG CT PROCEDURES Final Res ult Performing Organization Address [facility] de Phone Number [email or web address] * XR Outside Reference (03/13/2025 5:44 PM CDT) Impressions [facility] - 03/13/2025 5:44 PM CDT These images are for Reference purposes only and have not been reviewed by [facility] Radiology. There will be no report generated by a [facility] Radiologist. Narrative [facility] - 03/13/2025 5:44 PM CDT EXAMINATION: Images For Reference Purposes Only us [employer] PAPER MACHINE SUPERVISOR IMG XR PROCEDURES Final Res ult [facility] from Last 3 Months Additional Health Concerns Infection Onset Date Last Indicated C. difficile 02/25/2013 02/24/2013 Insurance [facility] Advance Directives For more information, please contact: [phone] Documents on File Type Date Recorded Patient Photographs Curator Expl anation ADVANCE DIRECTIVE 06/06/2014 12:00 AM [facility] [employer] FINISHING RANGE OPERATOR FINANCIAL/MEDICAL Care Teams Manager Resort Relationship Specialty Start Date End Date No, Physician PCP - General 04/03/18 Miscellaneous, Not In File 04/03/18
--- OUTSIDE RECORDS SUMMARY | 2025-03-20 12:02 | XMS_ITS | Encounter Summary ---
Author Organization [facility] Address [address] [place] [address] Care Team Providers Care Teradata Solution Architect Name Role Phone [facility], External Provider Primary Care Provider U alexaailphan Encounter Details Date Type Department Care Team (Late st Contact Info) Description 12/30/2007 Outpatient Historical [facility] [place], Authorized P NO ADDRESS ON FILE Adriano Roberts MD [facility] [address] [address] Kaitlyn Maldonado MD NO ADDRESS ON FILE Unspecified Constipation Social History Tobacco Use Types Packs/Day Years Used Date Smoking Tobacco: Never Assessed Comments Unknown Sex and Gender Information Value Date Recorded Sex Assigned at Not on file 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 Gender Identity Not on file Sexual Orientation Not on file documented as of this encounter Plan of Treatment Not on file documented as of this encounter Procedures Procedure Name Priority Date/Time Associated Diagnosis Comments HEPATITIS B SURFACE ANTIGEN Routine 12/31/2007 1:02 PM CDT HEPATITIS C ANTIBODY Routine 12/31/2007 1:02 PM CDT HEPATITIS B CORE IGM Routine 12/31/2007 1:02 PM CDT HEPATITIS A IGM Routine 12/31/2007 1:02 PM CDT XR ABDOMEN W DECUB AND OR ERECT 2 VW Timed Study 12/31/2007 7:45 AM CDT BASIC METABOLIC PANEL Routine 12/31/2007 4:[address] ABDOMEN PELVIS W CONTRAST Routine 12/30/2007 3:40 AM CDT URINALYSIS WITH REFLEX CULTURE Stat 12/30/2007 2:35 AM CDT URINALYSIS W/REFLEX MICROSCOPIC Stat 12/30/2007 2:35 AM CDT URINE CULTURE Stat 12/30/2007 2:35 AM CDT CBC WITH DIFFERENTIAL Stat 12/30/2007 2:34 AM CDT LIPASE Stat 12/30/2007 2:34 AM CDT AMYLASE Stat 12/30/2007 2:34 AM CDT COMPREHENSIVE METABOLIC PANEL Stat 12/30/2007 2:34 AM CDT POC , URINE Routine 12/30/2007 2:29 AM CDT documented in this encounter Results * HEPATITIS B CORE IGM (12/31/2007 1:02 PM CDT) Pathologist [facility] HEPATITIS B CORE IGM NON-REACT SAM NON-REACT SAM [facility] Comment: Lab test performed by: [employer] [address] VIPUL PEREZ MD Blood specimen (specimen) 12/31/2007 1:02 PM CDT 12/31/2007 1:02 PM CDT us Kaitlyn Maldonado MD CHEMISTRY ORDERABLES Final Resul t [facility] CLIA# [id number] [address] [facility] [place] [address] * HEPATITIS C ANTIBODY (12/31/2007 1:02 PM CDT) Pathologist [facility] SIGNAL TO CUT OFF 0.18 <1.00 [facility] Comment: Lab test performed by: [employer] [address] VIPUL PEREZ MD HEPATITIS C AB NON-REACT SAM NON-REACT SAM [facility] Blood specimen (specimen) 12/31/2007 1:02 PM CDT 12/31/2007 1:02 PM CDT Kaitlyn Maldonado MD CHEMISTRY ORDERABLES Final Resul t Performing Organization Address [facility] Co de Phone Number [facility] CLIA# [id number] [address] [place] [address] * HEPATITIS A IGM (12/31/2007 1:02 PM CDT) HEPATITIS A IGM NON-REACT SAM NON-REACT SAM [facility] Comment: Lab test performed by: [employer] [address] VIPUL PEREZ MD Blood specimen (specimen) 12/31/2007 1:02 PM CDT 12/31/2007 1:02 PM CDT Kaitlyn Maldonado MD CHEMISTRY ORDERABLES Final Resul t Performing Organization Address [facility] de Phone Number [facility] CLIA# [id number] [address] [place] [address] [address] * HEPATITIS B SURFACE ANTIGEN (12/31/2007 1:02 PM CDT) HEPATITIS B SURFACE AG NON-REACT SAM NON-REACT SAM [facility] Comment: Lab test performed by: [employer] [address] VIPUL PEREZ MD Blood specimen (specimen) 12/31/2007 1:02 PM CDT 12/31/2007 1:02 PM CDT Kaitlyn Maldonado MD CHEMISTRY ORDERABLES Final Resul t Performing Organization Address City/[facility] Co de Phone Number [facility] CLIA# [id number] [address] [facility] [place] [address] * XR ABDOMEN W DECUB AND OR ERECT (12/31/2007 7:45 AM CDT) Anatomical Region Laterality Modality Abdomen Other 12/31/2007 7:45 AM CDT Narrative 12/31/2007 12:40 PM CDT [facility] [address] [place], [place] [address] Admit Date: 12/30/2007 JOVITA STALEY Sex: F Admit Prov: ADRIANO ROBERTS Date: 1970 Primary Care Prov: PCP , NONE CMRN: [id number] Room: [place] [address] SSN: [id number] IMAGING SERVICES Ordering Prov: N/A Accession Number: [id number] Interpretation OBSTRUCTIVE SERIES, 12/31/2007 History: Constipation. Findings: The bowel gas pattern is normal. Oral contrast administered for yesterday CT examination opacifies a grossly normal appearing colon. There is no evidence of obstruction or free intraperitoneal air. Impression: Normal. . Dictated by: JASON MONSIVAIS 12/31/2007 08:14 Electronically signed by: JASON MONSIVAIS 12/31/2007 12:40 Transcribed: 12/31/2007 09:25 M Procedure Note Jason Monsivais MD - 12/31/2007 [place] [address] [place], [place] [address] Admit Date: 12/30/2007 STALEY, JOVITA A Sex: F Admit Prov: ADRIANO ROBERTS Date: 1970 Primary Care Prov: PCP , NONE CMRN: [id number] Room: [place] [address] SSN: [id number] IMAGING SERVICES Ordering Prov: N/A Interpretation OBSTRUCTIVE SERIES, 12/31/2007 History: Constipation. Findings: The bowel gas pattern is normal. Oral contrast administeredfor yesterday CT examination opacifies a grossly normal appearing colon.There is no evidence of obstruction or free intraperitoneal air. Impression: Normal. . Dictated by: JASON MONSIVAIS 12/31/2007 08:14 Electronically signed by: JASON MONSIVAIS 12/31/2007 12:40 Transcribed: 12/31/2007 09:25 SMM Result [facility] Julio Feliz MD DIAGNOSTIC IMAGING ORDERABLES Final Result * BASIC METABOLIC PANEL (12/31/2007 4:25 AM CDT) CHLORIDE 106 96 - 108 mmol/L [facility] GLUCOSE 89 65 - 99 mg/dL [facility] SODIUM 140 135 - 145 mmol/L [facility] CALCIUM 8.7 8.4 - 10.2 mg/dL [facility] CO2 24 22 - 30 mmol/L [facility] CREATININE 0.70 0.51 - 0.95 mg/dL [facility] POTASSIUM 3.8 3.5 - 4.9 mmol/L [facility] BUN 7 6 - 20 mg/dL [facility] GFR, >60 >=60 mL/min/1.7 sq meter [facility] GFR >60 >=60 mL/min/1.7 sq meter [facility] Comment: Modification of Diet in Renal Disease (MDRD) study formula. Estimated GFR rate interpretative information for both Americans and non- Americans is available on the [facility] Intranet at: [email or web address] Select: Lab Policies and Procedures Select: Reference Ranges - GFR Blood specimen (specimen) 12/31/2007 4:25 AM CDT 12/31/2007 4:38 AM CDT Kaitlyn Maldonado MD CHEMISTRY ORDERABLES Edited [facility] CLIA# [id number] [address] [place] [address] * CT ABDOMEN PELVIS W CONTRAST (12/30/2007 3:40 AM CDT) Anatomical Region Laterality Modality Abdomen Other 12/30/2007 3:40 AM CDT Narrative 12/30/2007 4:28 AM CDT [facility] [address] [place], [place] [address] Admit Date: 12/30/2007 STALEYJOVITA COWAN Laci Sex: F Admit Prov: ER, AUTHORIZED P Date: 1970 Primary Care Prov: PCP , NONE CMRN: [id number] Room: ER-A N: [address] [place] [address] IMAGING SERVICES Ordering Prov: N/A Accession Number: [id number] Interpretation CT abdomen and pelvis with intravenous contrast History: Abdominal pain constipation Technique: Helical images through the abdomen and pelvis following oral and intravenous contrast administration Findings: There is a tiny calcified granuloma in the left lower lobe. The liver, gallbladder, spleen, pancreas, kidneys and adrenal glands are normal. There is no hydronephrosis, hydroureter, free intraperitoneal air, fluid or adenopathy. There is no bowel obstruction. The uterus is absent. Impression: Normal. . Dictated by: JASON MONSIVAIS 12/30/2007 04:24 Electronically signed by: JASON MONSIVAIS 12/30/2007 04:28 Procedure Note Jason Monsivais MD - 12/30/2007 [place] [address] [place], [place] [address] Admit Date: 12/30/2007 JOVITA STALEY Sex: F Admit Prov: ER, AUTHORIZED P Date: 1970 Primary Care Prov: PCP , NONE CMRN: [id number] [facility] [address] [place] [address] IMAGING SERVICES Ordering Prov: N/A Interpretation CT abdomen and pelvis with intravenous contrast History: Abdominal pain constipation Technique: Helical images through the abdomen and pelvis followingoral and intravenous contrast administration Findings: There is a tiny calcified granuloma in the left lower lobe.The liver, gallbladder, spleen, pancreas, kidneys and adrenal glandsare normal. There is no hydronephrosis, hydroureter, free intraperitonealair, fluid or adenopathy. There is no bowel obstruction. The uterus isabsent. Impression: Normal. . Dictated by: JSAON MONSIVAIS 12/30/2007 04:24 Electronically signed by: JASON MONSIVAIS 12/30/2007 04:[address] ORDERABLES Final Result * URINE CULTURE (12/30/2007 2:35 AM CDT) PRELIMINARY REPORT Pending [facility] FINAL REPORT Polymicrobial growth present consistent with urethral loree and/or colonizing bacteria. including >100,000 colonies/mL presumptive Gardnerella vaginalis [facility] 12/30/2007 2:35 AM CDT 12/30/2007 6:59 AM CDT Ethan Croft MD MICROBIOLOGY - GENERA L ORDERABLES Final Result [facility] CLIA# [id number] [address] [facility] [place] [address] * (ABNORMAL) URINALYSIS (12/30/2007 2:35 AM CDT) NITRITE UA Negative Negative [facility] UROBILINOGEN UA <1 <=1 mg/dL [facility] BACTERIA UA 1+(A) None Seen /HPF [facility] PH UA 6.0 5.0 - 8.0 [facility] KETONES UA Negative Negative [facility] WBC UA 50(H) 0 - 5 /HPF [facility] CLARITY UA Slt. Cloudy(A) Clear [facility] PROTEIN UA 1+(A) Negative [facility] EPITHELIAL CELLS, URINE Many /HPF [facility] BILIRUBIN UA Negative Negative [facility] LEUKOCYTE ESTERASE UA Trace(A) Negative [facility] RBC UA 1 0 - 4 /HPF [facility] SPECIFIC GRAVITY UA 1.021 1.001 - 1.035 [facility] BLOOD UA Negative Negative [facility] GLUCOSE UA Negative Negative [facility] HYALINE CAST 4(H) 0 - 2 /LPF [facility] COLOR UA Yellow [facility] 12/30/2007 2:35 AM CDT 12/30/2007 2:39 AM CDT Ethan Croft MD URINE ORDERABLES Nitza l Result Performing Organization Address [facility] de Phone Number [facility] CLIA# [id number] [address] [place] [address] * URINALYSIS WITH REFLEX CULTURE (12/30/2007 2:35 AM CDT) [facility] URINE CULTURE ORDER Culture ordered [facility] Comment: Criteria for a reflex culture include one or more of the following: Abnormal nitrite, leukocyte esterase, WBCs or RBCs. Lack of qualifying criteria does not exclude the possiblity of a urinary tract infection. Dilute urine, drug interference, etc. may decrease the sensitivity of the criteria analytes. Urine specimen (specimen) 12/30/2007 2:35 AM CDT 12/30/2007 2:39 AM CDT Ethan Croft MD URINE ORDERABLES Nitza l Result Performing Organization Address [facility] Co de Phone Number [facility] CLIA# [id number] [address] [place] [place] [address] * LIPASE (12/30/2007 2:34 AM CDT) Pathologist [facility] LIPASE 60 13 - 60 U/L [facility] Blood specimen (specimen) 12/30/2007 2:34 AM CDT 12/30/2007 2:47 AM CDT Ethan Croft MD CHEMISTRY ORDERABLES Final Result [facility] CLIA# [id number] [address] [facility] [place], [place] [address] * (ABNORMAL) COMPREHENSIVE METABOLIC PANEL (12/30/2007 2:34 AM CDT) ALKALINE PHOSPHATASE 141(H) 35 - 104 U/L [facility] BILIRUBIN TOTAL 0.2 0.2 - 1.0 mg/dL [facility] CO2 26 22 - 30 mmol/L [facility] TOTAL PROTEIN 8.0 6.3 - 8.6 g/dL [facility] POTASSIUM 3.1(L) 3.5 - 4.9 mmol/L [facility] GLUCOSE 99 65 - 99 mg/dL [facility] AST 61(H) 12 - 32 U/L [facility] BUN 14 6 - 20 mg/dL [facility] CALCIUM 9.1 8.4 - 10.2 mg/dL [facility] CHLORIDE 103 96 - 108 mmol/L [facility] ALBUMIN 4.3 3.4 - 4.8 g/dL [facility] CREATININE 0.72 0.51 - 0.95 mg/dL [facility] SODIUM 139 135 - 145 mmol/L [facility] ALT 82(H) 0 - 31 U/L [facility] GFR, >60 >=60 mL/min/1. 7 sq meter [facility] GFR >60 >=60 mL/min/1. 7 sq meter [facility] Comment: Estimated GFR rate interpretative information for both Americans and non- Americans is available on the [facility] Intranet at: [email or web address] Select: Lab Policies and Procedures Select: Reference Ranges - GFR Blood specimen (specimen) 12/30/2007 2:34 AM CDT 12/30/2007 2:47 AM CDT us Ethan Croft MD CHEMISTRY ORDERABLES Edited [facility] CLIA# [id number] [address] [place] [address] * CBC WITH DIFFERENTIAL (12/30/2007 2:34 AM CDT) MCV 89.9 82.0 - 99.0 fL [facility] PLATELETS 341 140 - 350 K/uL [facility] HEMOGLOBIN 12.1 11.8 - 14.8 g/dL [facility] RDW 13.9 11.5 - 14.5 % [facility] WBC 6.6 4.0 - 9.8 K/uL [facility] MCH 29.1 27.2 - 32.6 pg [facility] MPV 9.7 9.3 - 12.4 fL [facility] HEMATOCRIT 37.4 35.5 - 44.0 % [facility] RDW-STDEV 45.8 37.1 - 48.7 fL [facility] RBC 4.16 3.90 - 4.90 M/uL [facility] MCHC 32.4 31.5 - 35.5 % [facility] EOSINOPHILS 1 0 - 7 % [facility] EOSINOPHIL ABSOLUTE 0.07 0.00 - 0.70 K/uL [facility] LYMPHOCYTES 33 16 - 45 % [facility] LYMPHOCYTE ABSOLUTE 2.15 0.70 - 4.50 K/uL [facility] BASOPHILS 0 0 - 2 % [facility] BASOPHILS ABSOLUTE 0.02 0.00 - 0.20 K/uL [facility] MONOCYTES 5 3 - 13 % [facility] MONOCYTE ABSOLUTE 0.30 0.10 - 1.30 K/uL [facility] NEUTROPHILS 61 45 - 70 % [facility] NEUTROPHIL ABSOLUTE 4.05 1.90 - 7.00 K/uL [facility] Blood specimen (specimen) 12/30/2007 2:34 AM CDT 12/30/2007 2:47 AM CDT Result [facility] Ethan Croft MD HEMATOLOGY ORDERABLES Edited Performing Organization Address [facility] de Phone Number INTERFACE SYSTEM Refer to clinic/hospital department [facility] CLIA# [id number] [address] [place] [address] * AMYLASE (12/30/2007 2:34 AM CDT) AMYLASE 77 28 - 100 U/L [facility] Blood specimen (specimen) 12/30/2007 2:34 AM CDT 12/30/2007 2:47 AM CDT Ethan Croft MD CHEMISTRY ORDERABLES Final Result Performing Organization Address [facility] de Phone Number [facility] CLIA# [id number] [address] [place] [address] * POC , URINE (12/30/2007 2:29 AM CDT) SPECIFIC GRAVITY UA 1.020 1.001 - 1.035 [facility] , URINE POC Negative Negative [facility] Urine specimen (specimen) 12/30/2007 2:29 AM CDT 12/30/2007 2:29 AM CDT us Authorized P Er POINT OF CARE TESTING Final Resu lt [facility] CLIA# [id number] [address] [place] [address] documented in this encounter Visit Diagnoses Diagnosis Unspecified constipation documented in this encounter Care Teams Teradata Solution Architect Relationship Specialty Start Date End Date [facility], External Provider [address] [place] [address] PCP - General 11/07/12 documented as of this encounter
--- OUTSIDE RECORDS SUMMARY | 2025-03-20 12:02 | XMS_ITS | Encounter Summary ---
Author Organization [facility] Address [address] [place] [address] Care Team Providers Care Water Resources Technical Officer Name Role Phone [facility], External Provider Primary Care Provider U navailable Encounter Details Date Type Department Care Team (Late st Contact Info) Description 06/03/2007 Inpatient Historical [facility] [place] [address] [facility] [address] [place] [address] [place] [id number] [facility] [address] [place] [address] Unspecified Functional Disorder of Stomach (Primary Dx) Social History Tobacco Use Types Packs/Day Years Used Date Smoking Tobacco: Never Assessed Comments Unknown Sex and Gender Information Value Date Recorded Sex Assigned at Not on file 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 Gender Identity Not on file Sexual Orientation Not on file documented as of this encounter Plan of Treatment Not on file documented as of this encounter Procedures Procedure Name Priority Date/Time Associated Diagnosis Comments CBC WITH DIFFERENTIAL Routine 06/04/2007 5:20 AM CDT CBC WITH DIFFERENTIAL Routine 06/04/2007 5:20 AM CDT HEPATIC FUNCTION PANEL Routine 7 5:20 AM CDT BASIC METABOLIC PANEL Routine 06/04/2007 5:20 AM CDT URINALYSIS W/REFLEX MICROSCOPIC Routine 06/03/2007 5:44 AM CDT PT AND APTT Routine 06/03/2007 5:27 AM CDT CBC WITH DIFFERENTIAL Routine 06/03/2007 5:27 AM CDT CBC WITH DIFFERENTIAL Routine 06/03/2007 5:27 AM CDT C-REACTIVE PROTEIN Routine 06/03/2007 5: 27 AM CDT LIPASE Routine 06/03/2007 5:27 AM CDT AMYLASE Routine 06/03/2007 5:27 AM CDT COMPREHENSIVE METABOLIC PANEL Routine 06/03/2007 5:27 AM CDT documented in this encounter Results * CBC WITH DIFFERENTIAL (06/04/2007 5:20 AM CDT) NEUTROPHILS 47 45 - 70 % INTERFAC E SYSTEM LYMPHOCYTES 45 16 - 45 % INTERFAC E SYSTEM MONOCYTES 7 3 - 13 % INTERFACE SYSTEM EOSINOPHILS 1 0 - 7 % INTERFAC E SYSTEM BASOPHILS 0 0 - 2 % INTERFACE SYSTEM NEUTROPHIL ABSOLUTE 2.38 1.90 - 7.00 K/uL INTERFACE SYSTEM LYMPHOCYTE ABSOLUTE 2.32 0.70 - 4.50 K/uL INTERFACE SYSTEM MONOCYTE ABSOLUTE 0.33 0.10 - 1.30 K/uL INTERFACE SYSTEM EOSINOPHIL ABSOLUTE 0.07 0.00 - 0.70 K/uL INTERFACE SYSTEM BASOPHILS ABSOLUTE 0.01 0.00 - 0.20 K/uL INTERFACE SYSTEM 06/04/2007 5:20 AM CDT Darrel Dangelo MD HEMATOLOGY ORDERABLES Edited INTERFACE SYSTEM Refer to clinic/hospital department * (ABNORMAL) CBC WITH DIFFERENTIAL (06/04/2007 5:20 AM CDT) WBC 5.1 4.0 - 9.8 K/uL INTERFACE SYSTEM RBC 3.83(L) 3.90 - 4.90 M/uL INTERFACE SYSTEM HEMOGLOBIN 12.0 11.8 - 14.8 g/dL INTERFACE SYSTEM HEMATOCRIT 35.9 35.5 - 44.0 % INTERFACE SYSTEM MCV 93.7 82.0 - 99.0 fL INTERFACE SYSTEM MCH 31.3 27.2 - 32.6 pg INTERFACE SYSTEM MCHC 33.4 31.5 - 35.5 % INTERFACE SYSTEM RDW 13.5 11.5 - 14.5 % INTERFACE SYSTEM RDW-STDEV 45.8 37.1 - 48.7 fL INTERFACE SYSTEM PLATELETS 227 140 - 350 K/uL INTERFACE SYSTEM MPV 9.8 9.3 - 12.4 fL INTERFACE SYSTEM 06/04/2007 5:20 AM CDT Darrel Dangelo MD HEMATOLOGY ORDERABLES Edited Performing Organization Address City/[facility] Co de Phone Number INTERFACE SYSTEM Refer to clinic/hospital department * (ABNORMAL) BASIC METABOLIC PANEL (06/04/2007 5:20 AM CDT) GLUCOSE 85 65 - 99 mg/dL INTERFACE SYSTEM CREATININE 0.72 0.51 - 0.95 mg/dL INTERFACE SYSTEM CALCIUM 8.3(L) 8.4 - 10.2 mg/dL INTERFACE SYSTEM BUN 6 6 - 20 mg/dL INTERFACE SYSTEM SODIUM 141 135 - 145 mmol/L INTERFACE SYSTEM POTASSIUM 4.2 3.5 - 4.9 mmol/L INTERFACE SYSTEM CHLORIDE 106 96 - 108 mmol/L INTERFACE SYSTEM CO2 26 22 - 30 mmol/L INTERFACE SYSTEM GFR, >60 >=60 mL/min/1. 7 sq meter INTERFACE SYSTEM GFR >60 >=60 mL/min/1. 7 sq meter INTERFACE SYSTEM Comment: Estimated GFR rate interpretative information for both Americans and non- Americans is available on the [facility] Intranet at: [email or web address] Select: Lab Policies and Procedures Select: Reference Ranges - GFR 06/04/2007 5:20 AM CDT Darrel Dangelo MD CHEMISTRY ORDERABLES Edited Performing Organization Address City/[facility] Co de Phone Number INTERFACE SYSTEM Refer to clinic/hospital department * HEPATIC FUNCTION PANEL (06/04/2007 5:20 AM CDT) ALKALINE PHOSPHATASE 60 35 - 104 U/L INTERFACE SYSTEM AST 21 12 - 32 U/L INTERFACE SYSTEM ALT 16 0 - 31 U/L INTERFACE SYSTEM TOTAL PROTEIN 6.6 6.3 - 8.6 g/dL INTERFACE SYSTEM ALBUMIN 4.1 3.4 - 4.8 g/dL INTERFACE SYSTEM BILIRUBIN TOTAL 0.3 0.2 - 1.0 mg/dL INTERFACE SYSTEM BILIRUBIN DIRECT 0.1 0.0 - 0.3 mg/dL INTERFACE SYSTEM 06/04/2007 5:20 AM CDT Darrel Dangelo MD CHEMISTRY ORDERABLES Edited Performing Organization Address [facility] Phone Number INTERFACE SYSTEM Refer to clinic/hospital department * URINALYSIS (06/03/2007 5:44 AM CDT) COLOR UA Yellow INTERFACE SYSTEM CLARITY UA Clear Clear INTERFACE SYSTEM SPECIFIC GRAVITY UA 1.013 1.001 - 1.035 INTERFACE SYSTEM PH UA 5.0 5.0 - 8.0 INTERFACE SYSTEM LEUKOCYTE ESTERASE UA Negative Negative INTERFACE SYSTEM NITRITE UA Negative Negative INTERFACE SYSTEM PROTEIN UA Negative Negative INTERFACE SYSTEM GLUCOSE UA Negative Negative INTERFACE SYSTEM KETONES UA Negative Negative INTERFACE SYSTEM UROBILINOGEN UA <1 <=1 mg/dL INTE RFACE SYSTEM BILIRUBIN UA Negative Negative INTERFA CE SYSTEM BLOOD UA Negative Negative INTERFACE SYSTEM 06/03/2007 5:44 AM CDT Mamadou Walsh DO URINE ORDERABLES Edited Performing Organization Address [facility] Phone Number INTERFACE SYSTEM Refer to clinic/hospital department * C-REACTIVE PROTEIN (06/03/2007 5:27 AM CDT) CRP 0.2 0.0 - 0.8 mg/dL INTERFACE SYSTEM 06/03/2007 5:27 AM CDT Darrel Dangelo MD CHEMISTRY ORDERABLES Edited Performing Organization Address [facility] Phone Number INTERFACE SYSTEM Refer to clinic/hospital department * (ABNORMAL) CBC WITH DIFFERENTIAL (06/03/2007 5:27 AM CDT) NEUTROPHILS 36(L) 45 - 70 % INTERFAC E SYSTEM LYMPHOCYTES 54(H) 16 - 45 % INTERFAC E SYSTEM MONOCYTES 8 3 - 13 % INTERFACE SYSTEM EOSINOPHILS 1 0 - 7 % INTERFAC E SYSTEM BASOPHILS 0 0 - 2 % INTERFACE SYSTEM NEUTROPHIL ABSOLUTE 1.37(L) 1.90 - 7.00 K/uL INTERFACE SYSTEM LYMPHOCYTE ABSOLUTE 2.06 0.70 - 4.50 K/uL INTERFACE SYSTEM MONOCYTE ABSOLUTE 0.31 0.10 - 1.30 K/uL INTERFACE SYSTEM EOSINOPHIL ABSOLUTE 0.04 0.00 - 0.70 K/uL INTERFACE SYSTEM BASOPHILS ABSOLUTE 0.01 0.00 - 0.20 K/uL INTERFACE SYSTEM 06/03/2007 5:27 AM CDT [facility] HEMAT[facility] ORDERABLES Edited Performing Organization Address [facility] de Phone Number INTERFACE SYSTEM Refer to clinic/hospital department * (ABNORMAL) CBC WITH DIFFERENTIAL (06/03/2007 5:27 AM CDT) [facility] WBC 3.8(L) 4.0 - 9.8 K/uL INTERFACE SYSTEM RBC 3.44(L) 3.90 - 4.90 M/uL INTERFACE SYSTEM HEMOGLOBIN 10.7(L) 11.8 - 14.8 g/dL INTERFACE SYSTEM HEMATOCRIT 32.1(L) 35.5 - 44.0 % INTERFACE SYSTEM MCV 93.3 82.0 - 99.0 fL INTERFACE SYSTEM MCH 31.1 27.2 - 32.6 pg INTERFACE SYSTEM MCHC 33.3 31.5 - 35.5 % INTERFACE SYSTEM RDW 13.5 11.5 - 14.5 % INTERFACE SYSTEM RDW-STDEV 46.2 37.1 - 48.7 fL INTERFACE SYSTEM PLATELETS 227 140 - 350 K/uL INTERFACE SYSTEM MPV 9.7 9.3 - 12.4 fL INTERFACE SYSTEM 06/03/2007 5:27 AM CDT [facility] HEMATOLOGY ORDERABLES Edited Performing Organization Address City/[facility] Co de Phone Number INTERFACE SYSTEM Refer to clinic/hospital department * PT AND APTT (06/03/2007 5:27 AM CDT) PROTIME 13.8 12.7 - 15.1 Seconds INTERFACE SYSTEM INR 1.0 0.9 - 1.1 INTERFACE SYSTEM Comment: INR Therapeutic Range: Adult: 2.0 - 3.0 for pulmonary embolism or prophylaxis against venous thrombosis or systemic embolization. 2.0 - 3.0 for patients with tissue heart valves. 2.5 - 3.5 for patients with mechanical heart valves or post [place]. Pediatric (12 years and under): 1.5 - 3.0 Although the target range in children is not well established , INR values of 1.5 - 3.0 are recommended for most patients. Higher values have been used in children with prosthetic cardiac valves and hereditary clotting disorders. (<3 days) therapeutic ranges have not been established. PTT 30.1 24.4 - 36.4 Seconds INTERFACE SYSTEM Comment: PTT Therapeutic Range: Heparin Level PTT (seconds) <0.10 units/mL <53 0.10 - 0.30 units/mL 53 - 67 0.30 - 0.70 units/mL* 67 - 95* 0.70 - 1.00 units/mL 95 - 116 *corresponds to therapeutic range for unfractionated heparin 06/03/2007 5:27 AM CDT Mamadou Walsh DO HEMATOLOGY ORDERABLES Edited INTERFACE SYSTEM Refer to clinic/hospital department * (ABNORMAL) COMPREHENSIVE METABOLIC PANEL (06/03/2007 5:27 AM CDT) Pathologist [facility] GLUCOSE 83 65 - 99 mg/dL INTERFACE SYSTEM CREATININE 0.67 0.51 - 0.95 mg/dL INTERFACE SYSTEM CALCIUM 8.3(L) 8.4 - 10.2 mg/dL INTERFACE SYSTEM ALKALINE PHOSPHATASE 59 35 - 104 U/L INTERFACE SYSTEM AST 17 12 - 32 U/L INTERFACE SYSTEM ALT 15 0 - 31 U/L INTERFACE SYSTEM TOTAL PROTEIN 6.2(L) 6.3 - 8.6 g/dL INTERFACE SYSTEM ALBUMIN 3.9 3.4 - 4.8 g/dL INTERFACE SYSTEM BILIRUBIN TOTAL 0.6 0.2 - 1.0 mg/dL INTERFACE SYSTEM BUN 14 6 - 20 mg/dL INTERFACE SYSTEM SODIUM 139 135 - 145 mmol/L INTERFACE SYSTEM POTASSIUM 3.7 3.5 - 4.9 mmol/L INTERFACE SYSTEM CHLORIDE 106 96 - 108 mmol/L INTERFACE SYSTEM CO2 25 22 - 30 mmol/L INTERFACE SYSTEM GFR, >60 >=60 mL/min/1. 7 sq meter INTERFACE SYSTEM GFR >60 >=60 mL/min/1. 7 sq meter INTERFACE SYSTEM Comment: Estimated GFR rate interpretative information for both Americans and non- Americans is available on the [facility] Intranet at: [email or web address] Select: Lab Policies and Procedures Select: Reference Ranges - GFR 06/03/2007 5:27 AM CDT Mamadou Noele DO CHEMISTRY ORDERABLES Edited INTERFACE SYSTEM Refer to clinic/hospital department * LIPASE (06/03/2007 5:27 AM CDT) LIPASE 20 13 - 60 U/L INTERFAC E SYSTEM 06/03/2007 5:27 AM CDT Mamadou Mayorgabone DO CHEMISTRY ORDERABLES Edited INTERFACE SYSTEM Refer to clinic/hospital department * AMYLASE (06/03/2007 5:27 AM CDT) AMYLASE 31 28 - 100 U/L INTERFACE SYSTEM 06/03/2007 5:27 AM CDT us Mamadou Mayorgabone DO CHEMISTRY ORDERABLES Edited INTERFACE SYSTEM Refer to clinic/hospital department documented in this encounter Visit Diagnoses Diagnosis Unspecified functional disorder of stomach- Primary documented in this encounter Care Teams Water Resources Technical Officer Relationship Specialty Start Date End Date [facility], External Provider [address] [place] [address] PCP - General 11/07/12 documented as of this encounter
--- OUTSIDE RECORDS SUMMARY | 2025-03-20 12:02 | XMS_ITS | Encounter Summary ---
Author Organization [facility] Address 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 Gender Identity Not on file Sexual Orientation Not on file documented as of this encounter Plan of Treatment Not on file documented as of this encounter Procedures Procedure Name Priority Date/Time Associated Diagnosis Comments POC URINALYSIS DIPSTICK NON AUTOMATED Routine 01/13/2008 10:[address] ABDOMEN PELVIS WO CONTRAST Stat 01/13/2008 8:55 PM CDT POC, BLOOD GASES Routine 01/13/2008 8:42 PM CDT CBC WITH DIFFERENTIAL Stat 01/13/2008 8:38 PM CDT C-REACTIVE PROTEIN Stat 01/13/2008 8: 38 PM CDT COMPREHENSIVE METABOLIC PANEL Stat 01/13/2008 8:38 PM CDT documented in this encounter Results * POC URINALYSIS DIPSTICK (01/13/2008 10:39 PM CDT) SPECIFIC GRAVITY UA 1.020 1.001 - 1.030 [facility] GLUCOSE UA Negative Negative [facility] COLOR UA Yellow [facility] BILIRUBIN UA Negative Negative [facility] NITRITE UA Negative Negative [facility] PH UA 5.0 5.0 - 8.0 [facility] KETONES UA Negative Negative [facility] CLARITY UA Clear [facility] PROTEIN UA Negative Negative [facility] BLOOD UA Negative Negative [facility] LEUKOCYTE ESTERASE UA Negative Negative [facility] UROBILINOGEN UA Normal Normal [facility] Urine specimen (specimen) 01/13/2008 10:39 PM CDT 01/13/2008 10:39 PM CDT us Authorized P Er POINT OF CARE TESTING Final Resu lt Performing Organization Address City/State/[facility] Co de Phone Number [facility] CLIA# [id number] [address] [place] [address] * CT ABDOMEN PELVIS WO CONTRAST (01/13/2008 8:55 PM CDT) Anatomical Region Laterality Modality Abdomen Other 01/13/2008 8:55 PM CDT Narrative 01/13/2008 9:28 PM CDT [facility] [address] [place], [place] [address] Admit Date: 01/13/2008 JOVITA STALEY Sex: F Admit Prov: ER, AUTHORIZED P Date: 1970 Primary Care Prov: PCP , NONE CMRN: [id number] Room: ER-A SSN: [id number] IMAGING SERVICES Ordering Prov: N/A Accession Number: [id number] Interpretation CT abdomen and pelvis without contrast 01/13/2008 History: Abdominal pain Technique: Contiguous 5 mm unenhanced images were obtained through the abdomen and pelvis Findings: Comparison study is dated 12/30/2007. Bilateral kidneys are normal in size and contour without hydronephrosis or calculus. No ureteral dilatation or calculus is seen. The urinary bladder is unremarkable. The liver, spleen, pancreas and left adrenal gland have unremarkable nonenhanced appearance. There is again 1.2 cm right adrenal nodule. No intraperitoneal free fluid or free air is seen. No bowel obstruction is visualized. There is no evidence of appendicitis. No diverticulitis is seen. The urinary bladder is unremarkable. No pelvic mass, lymphadenopathy or free fluid is seen. The aorta is normal in caliber. Small periaortic lymph nodes are again seen measuring less than 1 cm. Impression: No evidence of acute abnormality. Small subcentimeter periaortic lymph nodes. Small right adrenal nodule which is unchanged from the previous study dated back to 04/29/2007. . Dictated by: MINERVA CASEY 01/13/2008 21:25 Electronically signed by: MINERVA CASEY 01/13/2008 21:28 Procedure Note Minerva Casey - 01/13/2008 [facility] [address] [place], [place] [address] Admit Date: 01/13/2008 JOVITA STALEY Sex: F Admit Prov: ER, AUTHORIZED P Date: 1970 Primary Care Prov: PCP , NONE CMRN: [id number] Room: ER-A SSN: [id number] IMAGING SERVICES Ordering Prov: N/A Interpretation CT abdomen and pelvis without contrast 01/13/2008 History: Abdominal pain Technique: Contiguous 5 mm unenhanced images were obtained throughthe abdomen and pelvis Findings: Comparison study is dated 12/30/2007. Bilateral kidneys arenormal in size and contour without hydronephrosis or calculus. No ureteral dilatation or calculus is seen. The urinary bladder is unremarkable.The liver, spleen, pancreas and left adrenal gland have unremarkable nonenhanced appearance. There is again 1.2 cm right adrenal nodule.No intraperitoneal free fluid or free air is seen. No bowel obstructionis visualized. There is no evidence of appendicitis. No diverticulitisis seen. The urinary bladder is unremarkable. No pelvic mass,lymphadenopathy or free fluid is seen. The aorta is normal in caliber. Smallperiaortic lymph nodes are again seen measuring less than 1 cm. Impression: No evidence of acute abnormality. Small subcentimeter periaortic lymph nodes. Small right adrenal nodule which is unchangedfrom the previous study dated back to 04/29/2007. . Dictated by: MINERVA CASEY 01/13/2008 21:25 Electronically signed by: MINERVA CASEY 01/13/2008 21:28 us Authorized P Er CT ORDERABLES Final Result * (ABNORMAL) POC RT, BLOOD GASES (01/13/2008 8:42 PM CDT) COMMENT, GASES POC ROOM AIR MD AWARE [facility] HCO3 ARTERIAL 28(H) 22 - 26 mmol/L [facility] PATIENT'S TEMPERATURE 37.0 Degree C [facility] CALICUM IONIZED, WHOLE BLOOD 4.57(L) 4.76 - 5.16 mg/dL [facility] PO2 ARTERIAL 137(H) 83 - 108 mm Hg [facility] SODIUM POC 134(L) 135 - 145 mmol/L [facility] PH ARTERIAL 7.48(H) 7.35 - 7.45 [facility] BASE EXCESS ABG 4.0(H) -2.0 - 3.0 mmol/L [facility] HEMATOCRIT POC 37.0 35.5 - 44.0 % [facility] O2 SAT EST ABG POC 99 95 - 99 % [facility] POTASSIUM POC 4.4 3.5 - 4.9 mmol/L [facility] PCO2 ARTERIAL 37 35 - 48 mm Hg [facility] Blood specimen (specimen) 01/13/2008 8:42 PM CDT 01/13/2008 8:42 PM CDT us Authorized P Er CHEMISTRY ORDERABLES Final Resul t [facility] CLIA# [id number] [address] [place], [place] [address] * (ABNORMAL) CBC WITH DIFFERENTIAL (01/13/2008 8:38 PM CDT) HEMATOCRIT 34.8(L) 35.5 - 44.0 % [facility] RDW-STDEV 45.1 37.1 - 48.7 fL [facility] RBC 3.99 3.90 - 4.90 M/uL [facility] MCHC 33.3 31.5 - 35.5 % [facility] MCV 87.2 82.0 - 99.0 fL [facility] PLATELETS 318 140 - 350 K/uL [facility] HEMOGLOBIN 11.6(L) 11.8 - 14.8 g/dL [facility] RDW 14.1 11.5 - 14.5 % [facility] WBC 8.0 4.0 - 9.8 K/uL [facility] MCH 29.1 27.2 - 32.6 pg [facility] MPV 9.9 9.3 - 12.4 fL [facility] BASOPHILS 0 0 - 2 % [facility] BASOPHILS ABSOLUTE 0.01 0.00 - 0.20 K/uL [facility] MONOCYTES 7 3 - 13 % [facility] MONOCYTE ABSOLUTE 0.58 0.10 - 1.30 K/uL [facility] NEUTROPHILS 60 45 - 70 % [facility] NEUTROPHIL ABSOLUTE 4.82 1.90 - 7.00 K/uL [facility] EOSINOPHILS 1 0 - 7 % [facility] EOSINOPHIL ABSOLUTE 0.09 0.00 - 0.70 K/uL [facility] LYMPHOCYTES 31 16 - 45 % [facility] LYMPHOCYTE ABSOLUTE 2.52 0.70 - 4.50 K/uL [facility] Blood specimen (specimen) 01/13/2008 8:38 PM CDT 01/13/2008 8:38 PM CDT us Authorized P Er HEMATOLOGY ORDERABLES Edited Performing Organization Address [facility]/ZIP Co de Phone Number [facility] CLIA# [id number] [address] [place] [address] * C-REACTIVE PROTEIN (01/13/2008 8:38 PM CDT) Pathologist [facility] CRP 0.4 0.0 - 0.8 mg/dL [facility] Blood specimen (specimen) 01/13/2008 8:38 PM CDT 01/13/2008 8:38 PM CDT us Authorized P Er CHEMISTRY ORDERABLES Final Resul t Performing Organization Address [facility] Co de Phone Number [facility] CLIA# [id number] [address] [place] [address] * (ABNORMAL) COMPREHENSIVE METABOLIC PANEL (01/13/2008 8:38 PM CDT) SODIUM 136 135 - 145 mmol/L [facility] ALKALINE PHOSPHATASE 124(H) 35 - 104 U/L [facility] CO2 22 22 - 30 mmol/L [facility] BILIRUBIN TOTAL 0.2 0.2 - 1.0 mg/dL [facility] POTASSIUM 4.2 3.5 - 4.9 mmol/L [facility] TOTAL PROTEIN 7.6 6.3 - 8.6 g/dL [facility] GLUCOSE 90 65 - 99 mg/dL [facility] AST 15 12 - 32 U/L [facility] BUN 19 6 - 20 mg/dL [facility] CALCIUM 9.1 8.4 - 10.2 mg/dL [facility] ALBUMIN 4.3 3.4 - 4.8 g/dL [facility] CHLORIDE 101 96 - 108 mmol/L [facility] CREATININE 0.76 0.51 - 0.95 mg/dL [facility] ALT 30 0 - 31 U/L [facility] GFR, >60 >=60 mL/min/1. 7 sq meter [facility] GFR >60 >=60 mL/min/1. 7 sq meter [facility] Comment: Modification of Diet in Renal Disease (MDRD) study formula. Estimated GFR rate interpretative information for both Americans and non- Americans is available on the [facility] Intranet at: [email or web address] Select: Lab Policies and Procedures Select: Reference Ranges - GFR Blood specimen (specimen) 01/13/2008 8:38 PM CDT 01/13/2008 8:38 PM CDT us Authorized P Er CHEMISTRY ORDERABLES Edited [facility] CLIA# [id number] [address] [place] [address] documented in this encounter Visit Diagnoses Not on filedocumented in this encounter Care Teams Investment Sales Assistant Relationship Specialty Start Date End Date [facility], External Provider [address] [place] [address] PCP - General 11/07/12 documented as of this encounter
--- OUTSIDE RECORDS SUMMARY | 2025-03-20 12:02 | XMS_ITS | Patient Health Record ---
Author Organization [facility] Address [address] [place] [address] Care Team Providers Care Photographic Equipment Technician Name Role Phone Maranda Dicksonsarthak Primary Care Provider [phone] Allergies Allergen (clinical drug ingredient) Drug/Non Drug Allergy documented on EMR Reaction Allergy Type Onset Date Status Bentyl hives Drug Allergy Active meperidine Demerol hives Drug Allergy Active fentanyl Fentanyl hives Drug Allergy Active ketorolac Ketorolac Tromethamine hives Drug Allergy Active Nubain hives Drug Allergy Active Reason For Referral No Information Medications Medication SIG (Take, Route, Frequency, Duration) Notes Start Date End Date Status Zolpidem Tartrate 10 MG 1 tablet at bedt dharmesh as needed Orally Once a day Active ARIPiprazole 5 MG 1 tablet Orally Once a day Active Bethanechol Chloride 10 MG 1 tablet after meals Orally Three times a day Active Pantoprazole Sodium 40 MG 1 tablet Orall y Once a day Active Ondansetron 4 MG 1 tablet on the tong ue and allow to dissolve as needed Orally every 4 hrs Active droNABinol 5 MG 1 capsule in the evening at bedtime Orally Once a day Active Suboxone 8-2 MG 3 film under the ton nisreen and allow to dissolve Sublingual Once a day; Duration: 07 days Active clonazePAM 1 MG 1 tablet Orally Once a day Not-Taking Venlafaxine HCl ER 150 MG 1 tablet with food Orally Once a day Active Suboxone 4-1 MG 1 film under the ton nisreen and allow to dissolve Sublingual Once a day; Duration: 6 days 08/17/2018 Not-Taking Social History Tobacco Use: Social History Observation Description Date Details (start date - stop date) Current Smoker NA - NA Dont use, Tobacco Use/Smoking Question Answer Notes Are you a current smoker How often do you smoke cigarettes? every day How many cigarettes a day do you smoke? 11-20 How soon after you wake up do you smoke your fir st cigarette? 6-30 minutes Are you interested in quitting? Not ready to alf t PRAPARE Question Answer Notes Date Completed/Updated: 08/11/2018 What is your current housing situation? I have h ousing Are you worried about losing your housing? No What is the highest level of school that you have finished? Less than a high school degree What is your current work situation? Oth erwise unemployed but not seeking work (ex. 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 Check all that apply I do not have problems meeting my needs Has lack of transportation k ept you from medical appointments, meetings, work or from getting things needed for daily living? No How often do you see or talk to people that you care about and feel close to? (For example: talking to friends on the phone, visiting friends or family, going to anglican or club meetings) More than 5 times a week How stressed are you? Stress is when someone feels tense, nervous, anxious, or can\t sleep at night because their mind is troubled Quite a bit In the past year have you sp ent more than 2 nights in a row in a half-way, mcc, fpc center, or juvenile correctional facility? No Are you a refugee? No What country are you from? [place] Do you feel physically and e motionally safe where you currently live? Yes In the past year, have you b een afraid of your partner or ex-partner? No PRAPARE Score: 6 Section Notes: Problems Problem Type SNOMED Code ICD Code Onset Dates Problem Status W/U Status Risk Notes Problem Cancer (022913315) Cancer (C80.1) Active confirmed Problem Opioid use disorder (4988509803) Opioid use disorder (F11.99) Active confirmed Plan Of Treatment No Information Insurance Providers Payer Name Payer Address Payer Phone Subscriber Number Group Number Insured Name Patient Relationship to Insured Coverage Start Date Coverage End Date [facility] Claims Department [address] [place] [address] [id number] Jovita Staley Self - patient is the insured 8 Medical (General) History Medical History History ICD Code Cancer C80.1 Opioid use disorder F11.99 Ovarian Cancer Cervical Cancer Colon Cancer Asthma Chronic pain Rheumatoid arthritis frequent right shoulder dislocation Anxiety Surgical History Surgery Date(Month/Year) colon resection 2018 (R) Shoulder (L) elbow total Hysterectomy colostomy bag placement colostomy bag removal cholecystectomy appendectomy bowel obstruction Hospitalization History Reason Date(Month/Year) right shoulder pain, small bowel obstruc tion - left AMA 07/2018
--- OUTSIDE RECORDS SUMMARY | 2025-03-20 12:02 | XMS_ITS | Encounter Summary ---
Author Organization [facility] Address [address] [place] [address] Care Team Providers Care Barrel Tester And Drainer Name Role Phone [facility] Primary Care Provider U alexaailphan Encounter Details Date Type Department Care Team (Late st Contact Info) Description 04/29/2007 Emergency [facility] Deric Walsho, DO [address] [facility] [address] [place] [phone] Er, Authorized P NO ADDRESS ON FILE Abdominal Pain, Other Specified Site (Primary Dx) Social History Tobacco Use Types Packs/Day Years Used Date Smoking Tobacco: Never Assessed Comments Unknown Sex and Gender Information Value Date Recorded Sex Assigned at Not on file Legal Sex Female 5:04 AM TAR MAN Gender Identity Not on file Sexual Orientation Not on file documented as of this encounter Plan of Treatment Not on file documented as of this encounter Procedures Procedure Name Priority Date/Time Associated Diagnosis Comments CBC WITH DIFFERENTIAL Routine 04/29/2007 3:30 PM CDT CBC WITH DIFFERENTIAL Routine 04/29/2007 3:30 PM CDT LIPASE Routine 04/29/2007 3:30 PM CDT AMYLASE Routine 04/29/2007 3:30 PM CDT COMPREHENSIVE METABOLIC PANEL Routine 04/29/2007 3:30 PM CDT URINALYSIS W/REFLEX MICROSCOPIC Routine 04/29/2007 3:02 PM CDT documented in this encounter Results * CBC WITH DIFFERENTIAL (04/29/2007 3:30 PM CDT) NEUTROPHILS 64 45 - 70 % INTERFAC E SYSTEM LYMPHOCYTES 28 16 - 45 % INTERFAC E SYSTEM MONOCYTES 7 3 - 13 % INTERFACE SYSTEM EOSINOPHILS 1 0 - 7 % INTERFAC E SYSTEM BASOPHILS 0 0 - 2 % INTERFACE SYSTEM NEUTROPHIL ABSOLUTE 2.73 1.90 - 7.00 K/uL INTERFACE SYSTEM LYMPHOCYTE ABSOLUTE 1.19 0.70 - 4.50 K/uL INTERFACE SYSTEM MONOCYTE ABSOLUTE 0.31 0.10 - 1.30 K/uL INTERFACE SYSTEM EOSINOPHIL ABSOLUTE 0.03 0.00 - 0.70 K/uL INTERFACE SYSTEM BASOPHILS ABSOLUTE 0.01 0.00 - 0.20 K/uL INTERFACE SYSTEM 04/29/2007 3:30 PM CDT Frank Alicea MD HEMATOLOGY ORDERABLES Edited Performing Organization Address City/State/[facility] Co de Phone Number INTERFACE SYSTEM Refer to clinic/hospital department * CBC WITH DIFFERENTIAL (04/29/2007 3:30 PM CDT) WBC 4.3 4.0 - 9.8 K/uL INTERFACE SYSTEM RBC 4.06 3.90 - 4.90 M/uL INTERFACE SYSTEM HEMOGLOBIN 12.6 11.8 - 14.8 g/dL INTERFACE SYSTEM HEMATOCRIT 37.1 35.5 - 44.0 % INTERFACE SYSTEM MCV 91.4 82.0 - 99.0 fL INTERFACE SYSTEM MCH 31.0 27.2 - 32.6 pg INTERFACE SYSTEM MCHC 34.0 31.5 - 35.5 % INTERFACE SYSTEM RDW 13.6 11.5 - 14.5 % INTERFACE SYSTEM RDW-STDEV 44.9 37.1 - 48.7 fL INTERFACE SYSTEM PLATELETS 248 140 - 350 K/uL INTERFACE SYSTEM MPV 10.0 9.3 - 12.4 fL INTERFACE SYSTEM 04/29/2007 3:30 PM CDT Frank Alicea MD HEMATOLOGY ORDERABLES Edited INTERFACE SYSTEM Refer to clinic/hospital department * COMPREHENSIVE METABOLIC PANEL (04/29/2007 3:30 PM CDT) Pathologist [facility] GLUCOSE 92 65 - 99 mg/dL INTERFACE SYSTEM CREATININE 0.73 0.51 - 0.95 mg/dL INTERFACE SYSTEM CALCIUM 8.6 8.4 - 10.2 mg/dL INTERFACE SYSTEM ALKALINE PHOSPHATASE 89 35 - 104 U/L INTERFACE SYSTEM AST 30 12 - 32 U/L INTERFACE SYSTEM Comment:Hemolyzed: Result ma y be falsely elevated. ALT 24 0 - 31 U/L INTERFACE SYSTEM TOTAL PROTEIN 7.0 6.3 - 8.6 g/dL INTERFACE SYSTEM ALBUMIN 4.1 3.4 - 4.8 g/dL INTERFACE SYSTEM BILIRUBIN TOTAL 0.2 0.2 - 1.0 mg/dL INTERFACE SYSTEM BUN 11 6 - 20 mg/dL INTERFACE SYSTEM SODIUM 136 135 - 145 mmol/L INTERFACE SYSTEM POTASSIUM 4.3 3.5 - 4.9 mmol/L INTERFACE SYSTEM Comment:Slight hemolysis pre sent. Result may be falsely elevated. CHLORIDE 102 96 - 108 mmol/L INTERFACE SYSTEM CO2 26 22 - 30 mmol/L INTERFACE SYSTEM GFR, >60 >=60 mL/min/1.7 sq meter INTERFACE SYSTEM GFR >60 >=60 mL/min/1.7 sq meter INTERFACE SYSTEM Comment: Estimated GFR rate interpretative information for both Americans and non- Americans is available on the [facility] Intranet at: [email or web address] Select: Lab Policies and Procedures Select: Reference Ranges - GFR 04/29/2007 3:30 PM CDT Frank Alicea MD CHEMISTRY ORDERABLES Edited Performing Organization Address [facility] de Phone Number INTERFACE SYSTEM Refer to clinic/hospital department * LIPASE (04/29/2007 3:30 PM CDT) LIPASE 25 13 - 60 U/L INTERFAC E SYSTEM 04/29/2007 3:30 PM CDT Frank Alicea MD CHEMISTRY ORDERABLES Edited Performing Organization Address City/[facility] Co de Phone Number INTERFACE SYSTEM Refer to clinic/hospital department * AMYLASE (04/29/2007 3:30 PM CDT) AMYLASE 32 28 - 100 U/L INTERFACE SYSTEM 04/29/2007 3:30 PM CDT Frank Alicea MD CHEMISTRY ORDERABLES Edited Performing Organization Address [facility] Phone Number INTERFACE SYSTEM Refer to clinic/hospital department * URINALYSIS (04/29/2007 3:02 PM CDT) COLOR UA Yellow INTERFACE SYSTEM CLARITY UA Clear Clear INTERFACE SYSTEM SPECIFIC GRAVITY UA 1.011 1.001 - 1.035 INTERFACE SYSTEM PH UA 6.5 5.0 - 8.0 INTERFACE SYSTEM LEUKOCYTE ESTERASE UA Negative Negative INTERFACE SYSTEM NITRITE UA Negative Negative INTERFACE SYSTEM PROTEIN UA Negative Negative INTERFACE SYSTEM GLUCOSE UA Negative Negative INTERFACE SYSTEM KETONES UA Negative Negative INTERFACE SYSTEM UROBILINOGEN UA <1 <=1 mg/dL INTE RFACE SYSTEM BILIRUBIN UA Negative Negative INTERFA CE SYSTEM BLOOD UA Negative Negative INTERFACE SYSTEM 04/29/2007 3:02 PM CDT Frank Alicea MD URINE ORDERABLES Edited Performing Organization Address [facility] Phone Number INTERFACE SYSTEM Refer to clinic/hospital department documented in this encounter Visit Diagnoses Diagnosis Abdominal pain, other specified site- Primary documented in this encounter Care Teams Barrel Tester And Drainer Relationship Specialty Start Date End Date [facility], External Provider [address] [place] [address] PCP - General 11/07/12 documented as of this encounter
--- OUTSIDE RECORDS SUMMARY | 2025-03-20 12:02 | XMS_ITS | Encounter Summary ---
Author Organization [facility] Address [facility] [address] [place] [address] Care Team Providers Care Machine Applicator Cementer Name Role Phone Md Generic Conversion Primary Care Provider Unavailable Md Generic Conversion Primary Care Provider Unavailable Md Generic Conversion Primary Care Provider Unavailable Md Generic Conversion Primary Care Provider Unavailable Md Generic Conversion Primary Care Provider Unavailable Md Generic Conversion Primary Care Provider Unavailable Md Generic Conversion Primary Care Provider Unavailable Md Generic Conversion Primary Care Provider Unavailable Md Generic Conversion Primary Care Provider Unavailable Md Generic Conversion Primary Care Provider Unavailable Md Generic Conversion MD Primary Care Provider Unavailable Md Generic Conversion MD Primary Care Provider Unavailable Md Generic Conversion MD Primary Care Provider Unavailable Md Generic Conversion MD Primary Care Provider Unavailable Md Generic Conversion MD Primary Care Provider Unavailable Md Generic Conversion Primary Care Provider Unavailable Md Generic Conversion Primary Care Provider Unavailable Md Generic Conversion MD Primary Care Provider Unavailable Md Generic Conversion Primary Care Provider Unavailable Md Generic Conversion Primary Care Provider Unavailable Md Generic Conversion Primary Care Provider Unavailable Md Generic Conversion Primary Care Provider Unavailable Md Generic Conversion MD Primary Care Provider Unavailable Md Generic Conversion MD Primary Care Provider Unavailable Md Generic Conversion MD Primary Care Provider Unavailable Md Generic Conversion MD Primary Care Provider Unavailable Md Generic Conversion MD Primary Care Provider Unavailable Md Generic Conversion MD Primary Care Provider Unavailable Md Generic Conversion MD Primary Care Provider Unavailable Md Generic Conversion MD Primary Care Provider Unavailable Md Generic Conversion MD Primary Care Provider Unavailable Md Generic Conversion MD Primary Care Provider Unavailable Md Generic Conversion MD Primary Care Provider Unavailable Md Generic Conversion Primary Care Provider Unavailable None, Provider Primary Care Provider Unavaila ble Encounter Details Date Type Department Care Team (Late st Contact Info) Description 04/29/2013 Abstract [facility] CONVERSION [address] [place] [address] Md Generic Conversion, Social History Tobacco Use Types [...] on filedocumented in this encounter Care Teams Machine Applicator Cementer Relationship Specialty Start Date End Date Md Generic Conversion, PCP - General 02/03/16 Md Generic Conversion, PCP - General 01/21/16 Md, Generic Conversion, PCP - General 12/18/15 6 Md, Generic Conversion, PCP - General 05/14/15 6 Md, Generic Conversion, PCP - General 09/24/14 Md, Generic Conversion, MD PCP - General 09/06/14 5 Md, Generic Conversion, MD PCP - General 08/31/14 Md, Generic Conversion, MD PCP - General 08/19/14 Md, Generic Conversion, MD PCP - General 08/18/14 5 Md, Generic Conversion, MD PCP - General 06/07/14 5 Md, Generic Conversion, MD PCP - General 05/10/1406/06 Md, Generic Conversion, MD PCP - General 05/02/14 Md, Generic Conversion, MD PCP - General 04/21/14 Md, Generic Conversion, MD PCP - General 03/09/14 4 Md, Generic Conversion, MD PCP - General 02/12/14 Md, Generic Conversion, MD PCP - General 02/05/14 Md, Generic Conversion, MD PCP - General 01/14/14 Md, Generic Conversion, MD PCP - General 10/18/13 Md, Generic Conversion, MD PCP - General 10/12/13 4 Md, Generic Conversion, MD PCP - General 10/08/13 Md, Generic Conversion, MD PCP - General 10/07/13 Md, Generic Conversion, MD PCP - General 10/04/13 Md, Generic Conversion, MD PCP - General 09/14/13 Md, Generic Conversion, MD PCP - General 09/10/13 Md, Generic Conversion, PCP - General 09/02/13 Md, Generic Conversion, PCP - General 08/20/13 Md, Generic Conversion, PCP - General 07/17/13 4 Md, Generic Conversion, PCP - General 07/14/13 Md, Generic Conversion, PCP - General 06/30/1307/13 Md, Generic Conversion, PCP - General 06/18/1306/29 Md, Generic Conversion, PCP - General 06/16/13 Md, Generic Conversion, MD PCP - General 05/27/1306/15 Md, Generic Conversion, PCP - General 05/06/1305/26 Md, Generic Conversion, PCP - General 04/17/13 None, Provider, PCP - General 07/26/18 documented as of this encounter
--- OUTSIDE RECORDS SUMMARY | 2025-03-20 12:02 | XMS_ITS ---
Author Organization [facility] Care Team Providers Care Woodwork Teacher Name Role Phone MINDY QUINTON Unavailable Unavailable Allergies and adverse reactions Code CodeSystem Substance Reaction Severity StartDate Concern Status Toradol Unknown 12/31/[address] Sulfa Antibiotics Unknown 12/31/2016 active 621925 RXNORM Pregabalin Unknown 12/31/2016 active 7238 RXNORM Nalbuphine Unknown 12/31/2016 active 7052 RXNORM Morphine Unknown 12/31/2016 active 04991 RXNORM Ketorolac Unknown 12/31/2016 active 66437 RXNORM Iron Unknown 12/31/2016 active Fentanyl and Related Unknown 12/31/2016 active Demerol Unknown 12/31/2016 active 2556 RXNORM Citalopram Unknown 12/31/2016 active Bentyl Unknown 12/31/2016 active ADHESIVE TAPE Unknown 12/31/2016 active Care Team Name Role Address Phone Organization Dates [facility] [address] [place], [address], [place] (Office): : Narda Coronado ruperto Webb 12/30/2016 - 01/29/2017 Immunizations Immunization Status Vaccine Details Vaccine Code CodeSystem Date Notes Influenza completed Influenza, split virus, trivalent, injectable, contains preservative Given intramuscularly 141 CVX created date: 01/01/2017 administer ed date: 05/03/2016 per resident received at U TB 2 Step Mantoux Skin Test completed tuberculin skin test; unspecified formulation lotNumber: [id number] expiry: 06/12/2018 Mfg: Tubersol Given 0.1 ml Left Forearm intradermally Step 2 of Multi-step with next step required 98 CVX created date: 01/25/2017 consent date: 01/25/2017 administer ed date: 01/15/2017 TB 2 Step Mantoux Skin Test completed tuberculin skin test; unspecified formulation lotNumber: [id number] expiry: 06/12/2018 Mfg: Tubersol Given 0.1 ml Right Forearm intradermally Step 1 of Multi-step with next step required 98 CVX created date: 01/25/2017 consent date: 01/25/2017 administer ed date: 01/04/2017 Pneumovax 23 completed pneumococcal polysaccharide vaccine, 23 valent 33 CVX created date: 01/04/2017 administer ed date: 07/16/2014 per resident received at U Mental Status Section Date Assessment Total Score Description 01/24/2017 CAM 0 No delirium ind icated 01/21/2017 BIMS 15 cognitively int act CAM 0 No delirium ind icated PHQ-9 06 mild depression Problems Problem # Description Date of onset Resolved Date Code CodeSystem Concern Status 1 ACQUIRED ABSENCE OF BOTH CERVIX AND UTERUS 01/01/[address] active 2 ACQUIRED ABSENCE OF OTHER SPECIFIED PARTS OF DIGESTIVE TRACT 01/01/[address] active 3 ABNORMAL WEIGHT LOSS 12/31/[address] active 4 ANEMIA, UNSPECIFIED 12/31/[address] active 5 ANXIETY DISORDER, UNSPECIFIED 12/31/[address] active 6 BIPOLAR DISORDER, UNSPECIFIED 12/31/[address] active 7 CHRONIC 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 12/31/[address] active 8 CHRONIC EMBOLISM AND THROMBOSIS OF UNSPECIFIED VEIN 12/31/[address] active 9 DEFICIENCY OF OTHER SPECIFIED B GROUP VITAMINS 12/31/[address] active 10 DEFICIENCY OF OTHER VITAMINS 12/31/[address] active 11 DYSPHAGIA, UNSPECIFIED 12/31/[address] active 12 GASTROENTERITIS AND COLITIS DUE TO RADIATION 12/31/[address] active 13 GASTROPARESIS 12/31/[address] act romel 14 GASTROSTOMY MALFUNCTION 12/31/[address] active 15 GASTROSTOMY STATUS 12/31/2016 861207485 SNOMED C T active 16 GENERALIZED ABDOMINAL PAIN 12/31/[address] active 17 HYPOKALEMIA 12/31/[address] active 18 ILEOSTOMY STATUS 12/31/[address] active 19 INSOMNIA, UNSPECIFIED 12/31/[address] active 20 MAJOR DEPRESSIVE DISORDER, SINGLE EPISODE, UNSPECIFIED 12/31/[address] active 21 MALIGNANT NEOPLASM OF CERVIX UTERI, UNSPECIFIED 12/31/[address] active 22 NONINFECTIVE GASTROENTERITIS AND COLITIS, UNSPECIFIED 12/31/[address] active 23 OTHER CHRONIC PAIN 12/31/[address] active 24 OTHER COMPLICATIONS OF ENTEROSTOMY 12/31/[address] active 25 OTHER INTESTINAL OBSTRUCTION 12/31/[address] active 26 OTHER PSYCHOACTIVE SUBSTANCE USE, UNSPECIFIED, UNCOMPLICATED 12/31/[address] active 27 PERSONAL HISTORY OF COLONIC POLYPS 12/31/[address] active 28 PERSONAL HISTORY OF MALIGNANT NEOPLASM OF CERVIX UTERI 12/31/[address] active 29 PERSONAL HISTORY OF MALIGNANT NEOPLASM OF OVARY 12/31/[address] active 30 SEPSIS, UNSPECIFIED ORGANISM 12/31/[address] active 31 UNSPECIFIED CONVULSIONS 12/31/[address] active 32 URINARY TRACT INFECTION, SITE NOT SPECIFIED 12/31/[address] active 33 VOMITING, UNSPECIFIED 12/31/[address] active 34 ACQUIRED ABSENCE OF OTHER GENITAL ORGAN(S) 12/30/[address] active 35 ACQUIRED ABSENCE OF OVARIES, BILATERAL 12/30/[address] active 36 CHRONIC OBSTRUCTIVE PULMONARY DISEASE, UNSPECIFIED 12/30/[address] active 37 CHRONIC PAIN SYNDROME 12/30/[address] active 38 CROSSING VESSEL AND STRICTURE OF URETER WITHOUT HYDRONEPHROSIS 12/30/[address] active 39 GENERALIZED ANXIETY DISORDER 12/30/[address] active 40 ILEUS, UNSPECIFIED 12/30/2016 864497603 SNOMED C T active 41 IRON DEFICIENCY ANEMIA SECONDARY TO BLOOD LOSS (CHRONIC) 12/30/[address] active 42 UNSPECIFIED ABDOMINAL PAIN 12/30/[address] active 43 VITAMIN D DEFICIENCY, UNSPECIFIED 12/30/[address] active Reason for Referral No Reasons for Referral Entered Social History Social History Observation Description Start Date End Date Code Code System Current Smoking Status Tobacco smoking consumption unknown 926799621 SNOMED CT Sex Assigned At Female 1970 58582-1 [facility] Gender Identity Vital Signs Code Code System Vitals Name Values and Units Timing Information 71870-1 [facility] Pain Level Value=3.0 01/30/2017 8462-4 [facility] Blood Pressure-Diastolic Value=76 Un its=mmHg 01/24/2017 8480-6 [facility] Blood Pressure-Systolic Xcmez=613 Un its=mmHg 01/24/2017 82580-0 [facility] Weight Svygo=681.4 Units=Lbs 12/2016 09023-2 [facility] O2 % BldC Oximetry Value=99.0 Units= % 01/14/2017 9279-1 [facility] Respiratory Rate Value=18.0 Units=/m in 01/14/2017 8867-4 [facility] Heart rate Value=90.0 Units=/min 08/2016 8310-5 [facility] Body Temperature Value=98.8 Units= F 01/14/2017
[2025-03-20] MEDS: MORPHINE SULFATE (*CRX) 4 MG/ML INJ IV PUSH (12:17)
[2025-03-20] MEDS: ONDANSETRON INJ 4 MG/2 ML VIAL IV PUSH (12:18)
[2025-03-20 12:34] LABS: Hematocrit 40.7 % (37.0-47.0); Hemoglobin 13.3 g/dL (12.0-15.0); Immature Granulocyte Percent A 0.4 % (0-0.5); Lymphocytes Absolute Auto 1.47 K/mm3 (0.9-3.2); Mean Corpuscular HGB Conc 32.7 g/dl (32-36); Mean Corpuscular Hemoglobin 29.8 pg (26-34); Mean Corpuscular Volume 91.1 fl (80-100); Nucleated Red Blood Cells Absolute Auto 0.000 K/mm3 (0.0-0.012); Nucleated Red Blood Cells Perc 0.0 % (0.0-0.2); Platelet Count Result 331 k/mm3 (150-375); Red Blood Count 4.47 M/mm3 (4.2-5.4); White Blood Count 5.5 K/mm3 (4.5-10.0)
[2025-03-20 12:50] LABS: Alanine Aminotransferase 18 U/L (6-35); Albumin Level 4.3 g/dL (3.5-5.1); Alkaline Phosphatase 100 U/L (38-126); Anion Gap 9 mmol/L (4-12); Aspartate Amino Transferase 34 U/L (14-36); Bilirubin,Total 0.5 mg/dL (0.2-1.3); Blood Urea Nitrogen 21 mg/dL (7-17); Calcium 9.5 mg/dL (8.4-10.2); Carbon Dioxide 26 mmol/L (22-30); Chloride 104 mmol/L (98-107); Estimated CRCL calculation 74 ml/min; Estimated Glomerular Filt Rate > 60; Glucose 99 mg/dL (65-110); Potassium 3.9 mmol/L (3.4-5.0); Sodium 139 mmol/L (137-145); Total Protein 7.9 g/dL (6.3-8.2)
[2025-03-20 12:53] LABS: INR 0.9; Prothrombin Time 12.0 Seconds (11.1-14.7)
--- NOTE | 2025-03-20 13:31 | ED_ITS ---
HPI - Fall General Chief Complaint: Fall Stated Complaint: left hip pain Time Seen by Provider: 03/20/25 11:36 Source: patient Mode of arrival: wheelchair Limitations: no limitations History of Present Illness HPI Narrative: 54-year-old with a history of for left hip injury sustained a month ago presents to the ER with increased left hip pain since last night. Patient states that she lost her balance and fell on the left hip and she is now unable to bear weight. She denies any head and neck injuries. Patient has not seen any orthopedic doctor after a previous fall. She presently has not seen in the primary doctor as her PMD moved out of town. Related Data Allergies Allergy/AdvReac Type Severity Reaction Status Date / Time dicyclomine Allergy Severe Seizure Verified 03/20/25 12:27 ketorolac Allergy Mild Rash Verified 03/20/25 12:16 naproxen Allergy Mild Rash Verified 03/20/25 12:16 adhesive Allergy Unknown Rash Verified 03/20/25 12:16 codeine Allergy Unknown Unknown Verified 03/20/25 12:16 meperidine Allergy Unknown Unknown Verified 03/20/25 12:27 nalbuphine Allergy Unknown Unknown Verified 03/20/25 12:27 Sulfa (Sulfonamide Allergy Unknown RASH Verified 03/20/25 12:16 Antibiotics) Review of Systems 2 Review of Systems: All systems reviewed & are unremarkable except as noted in HPI and below Constitutional: Constitutional: Reports no additional constitutional complaints Eyes: Eyes: Reports no additional eye complaints ENT: Reports system reviewed and no additional complaints, except as documented Cardiovascular: Cardiovascular: Reports no additional cardiovascular complaints Respiratory: Respiratory: Reports no additional respiratory complaints Gastrointestinal: Gastrointestinal: Reports no additional gastrointestinal complaints Musculoskeletal: Musculoskeletal: Reports as per HPI Neurologic: Reports system reviewed and no additional complaints, except as documented PMFSH Social History Social History Smoking status: Current some day smoker Alcohol intake: current Substance use: current Substance use type: heroin and opiates Exam 2 Narrative: GENERAL: Well-appearing, well-nourished, and in no acute distress. HEAD: Normocephalic, atraumatic. EYES: PERRLA and EOMI. ENT: Nares clear, no rhinorrhea or epistaxis. Mucous membranes moist. NECK: Supple. CHEST: Clear to auscultation. No respiratory distress. HEART: Regular rate and rhythm. No murmur heard. Normal peripheral pulses. EXTREMITIES: Normal range of motion. No edema. Examination of the left hip marked tenderness on palpation ,leg is shortened. SKIN: Warm, dry, no rash. NEURO: No focal deficits. Alert and oriented x3. PSYCH: Normal mood and affect. Course Course Emergency Course: Her pain is much improved with IV morphine. I did inform her about the lab work and x-ray findings. I did discussed with Dr. Castro pt can be discharged and followed up as out pt.Pt has been informed and she did understand the instructions. Vital Signs Vital signs: Vital Signs Temperature 36.3 C L 03/20/25 11:15 Pulse Rate 118 H 03/20/25 11:15 Respiratory Rate 16 03/20/25 11:15 Blood Pressure 136/90 03/20/25 11:15 Pulse Oximetry 99 03/20/25 11:15 Temperature 36.3 C L 03/20/25 11:15 Pulse Rate 118 H 03/20/25 11:15 Respiratory Rate 16 03/20/25 11:15 Blood Pressure 136/90 03/20/25 11:15 Pulse Oximetry 99 03/20/25 11:15 MDM - Fall Medical Records Attestation: I reviewed the patient's medical records. Lab Data Attestation: I reviewed the patient's lab results. 03/20/25 12:11 03/20/25 12:11 Labs: Lab Results 03/20/25 Range/Units 12:11 WBC 5.5 (4.5-10.0) K/mm3 RBC 4.47 (4.2-5.4) M/mm3 Hgb 13.3 (12.0-15.0) g/dL Hct 40.7 (37.0-47.0) % MCV 91.1 (80-100) fl MCH 29.8 (26-34) pg MCHC 32.7 (32-36) g/dl RDW 13.7 (11.5-14.5) % Plt Count 331 (150-375) k/mm3 MPV 9.3 (7.4-10.4) fl Immature Gran % (Auto) 0.4 (0-0.5) % Neut % (Auto) 65.4 (45.5-73.1) % Lymph % (Auto) 26.7 (18.3-44.2) % Morton % (Auto) 5.8 (2.6-8.5) % Eos % (Auto) 1.3 (0-4.4) % Baso % (Auto) 0.4 (0.2-1.2) % Lymph # (Auto) 1.47 (0.9-3.2) K/mm3 Morton # (Auto) 0.3 (0.1-0.6) K/mm3 Eos # (Auto) 0.1 (0-0.3) K/mm3 Baso # (Auto) 0.0 (0.0-0.1) K/mm3 Abs Immat Gran (auto) 0.02 (0.00-0.031) K/mm3 Absolute Neuts (auto) 3.6 (1.3-6.7) K/mm3 Absolute Nucleated RBC 0.000 (0.0-0.012) K/mm3 Nucleated RBC % 0.0 (0.0-0.2) % PT 12.0 (11.1-14.7) Seconds INR 0.9 Sodium 139 (137-145) mmol/L Potassium 3.9 (3.4-5.0) mmol/L Chloride 104 (98-107) mmol/L Carbon Dioxide 26 (22-30) mmol/L Anion Gap 9 (4-12) mmol/L BUN 21 H (7-17) mg/dL Creatinine 0.70 (0.7-1.0) mg/dL Estim Creat Clear Calc 74 ml/min Estimated GFR > 60 (59 - ) Glucose 99 (65-110) mg/dL Calcium 9.5 (8.4-10.2) mg/dL Total Bilirubin 0.5 (0.2-1.3) mg/dL AST 34 (14-36) U/L ALT 18 (6-35) U/L Alkaline Phosphatase 100 (38-126) U/L Total Protein 7.9 (6.3-8.2) g/dL Albumin 4.3 (3.5-5.1) g/dL Imaging Data Radiologist's impression: ITS Impressions Hip/Pelvis X-Ray 03/20/25 12:40 Impression: 1: Stable superior lateral subluxation of the left femoral head compared with 02/28/2025. 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 Discharge Plan Discharge Clinical Impression: AVN of femur Patient Disposition: Home Condition: Stable Instructions: Hip Pain (ED) Additional Instructions: Use walker all the time, take pain medication as prescribed , follow with ortho Patient Language: Uzbek Prescriptions: New hydrocodone-acetaminophen 5-325 mg tablet 1 tablet PO Q8H PRN (Reason: pain) Qty: 14 0RF Follow-up/Referrals: Samuel Castro MD [Physician] - PHYSICIAN,CONTROL DIRECTOR [Primary Care Provider] - Derrick Montenegro MD [Physician] - Time of Disposition: 13:35
--- NOTE | 2025-03-20 13:56 | PC.NURSE ---
Pt. states she does not have her phone with her, so she does not have the phone numbers of friends or family to call for a ride. Pt. walks with a walker and cannot ambulate to the bus stop. Pt. states she has no money to pay for a cab and she does not qualify for an ambulance. Rafaela with care coordination notified of pt. situation. Care coordination providing pt. with a cab voucher.
[2025-03-20 14:00] VITALS: BP 150/70; PULSE 85; RESP 14; O2SAT 96
== END 2025-03-20 14:12 | disposition home or self-care (01) ==
PROVIDERS: Emergency Provider Family Medicine
DX: M87.9 Osteonecrosis, unspecified (principal); F17.200 Nicotine dependence, unspecified, uncomplicated; R94.31 Abnormal electrocardiogram [ECG] [EKG]
CPT/HCPCS: 36415; 73502; 80053; 85025; 85610; 93005; 96374; 96375; 99284; J2270; J2405